=== PATIENT | female | born 1965 | race Hispanic/Latino ===

== ENCOUNTER 2024-06-07 23:43 | Inpatient (IN) | payer BC, OTHER ==
[~2024-06-07] VITALS: Ht 152.4 cm; Wt 67.0 kg
[~2024-06-07 23:43] MED LIST: ALBU0.63 IH; AMLO2.5T4 PO; DOXY100T2 PO; FLUT1BLS15 IH; LOSA50TA64 PO; POTA-192 PO; PRED20TA3 PO
[2024-06-08] VITALS (10 sets, daily range): BP systolic 131–164; BP diastolic 54–64; PULSE 48–60; RESP 14–20; TEMP 97.9–98.1; O2SAT 96–98
--- NOTE | 2024-06-08 00:38 | ERN ---
General Chief Complaint: Altered Mental Status Stated Complaint: AMS Time Seen by MD: 00:02 Source: family History of Present Illness Initial Comments Patient is a 58-year-old female with past medical history of cystic fibrosis cirrhosis heart disease and prior hospitalizations for hyperammonemia. Patient earlier today became disoriented delusional and forgetful needing constantly to be reminded of tasks and constantly repeating tasks even though had been completed. Daughter is at the bedside and tells me this is how she behaved the last time she had very high ammonia in her blood stream. When I talked to the patient directly and I asked her questions she simply says to me okay okay okay Allergies: Coded Allergies: codeine (Unverified Allergy, Unknown, 04/30/22) Home Meds Active Scripts Doxycycline Hyclate (Doxycycline Hyclate) 100 Mg Tablet, 100 MG PO BID, #20 TAB 0 Refills Prov:MERCEDES DUTTON [employer] CUTTER OPERATOR 05/02/22 Prednisone (Prednisone) 20 Mg Tablet, 20 MG PO AD for 6 Days, #9 TAB 0 Refills Day 1-3 take 40 mg orally daily in am. Day 4-6 take 20 mg orally daily in am. Prov:MERCEDES DUTTON [facility] 05/02/22 Reported Medications Potassium Chloride (K-Dur/Klor-Con) 20 Meq Ertab, 20 MEQ PO DAILY, TAB.EC 05/01/22 Albuterol Sulfate (Albuterol Sulfate) 0.63 Mg/3 Ml Vial.neb, 0.63 MG IH TID, INH 05/01/22 Fluticasone/Umeclidin/Vilanter (Trelegy Ellipta 200-62.5-25) 1 Each Blst.w.dev, 1 EACH IH DAILY 05/01/22 Losartan Potassium (Losartan Potassium) 50 Mg Tablet, 50 MG PO TOMÁS, TAB 04/30/22 Amlodipine Besylate (Amlodipine Besylate) 2.5 Mg Tablet, 2.5 MG PO DAILY, TAB 04/30/22 Past Medical History Past Medical History: Hypertension, Liver Disease, Other Medical History Other: CYSTIC FIBROSIS, CIRRHOSIS Past Surgical History: Tonsillectomy, Cholecystectomy, BTL Social History Social History: Negative, Lives with family Female( History) History: Not Applicable ROS Dictation Impossible to obtain a review of systems as patient is simply keeps saying okay okay okay. Physical Exam General Appearance comment Patient lying in bed minimally responsive. Head/Face Trauma: No Eye: bilateral eye normal inspection, bilateral eye PERRL, bilateral eye EOMI Ear, Nose, Throat: (+) hearing grossly normal, (+) normal ENT inspection Ear, Nose, Throat Comment Patient's mucous membranes are dry Neck: (+) normal inspection, (+) supple, (+) full range of motion Respiratory: (+) chest non-tender, (+) lungs clear Heart: (+) regular Vascular Comment Patient has mild peripheral edema all four extremities Gastrointestinal: (+) soft, (+) bowel sound present Gastrointestinal Comment Can not tell if abdomen is tender or not as patient responds randomly during my exam. I do not appreciate a fluid wave the abdomen is not distended. Skin: (+) normal color, (+) warm/dry, (+) cyanosis, (+) diaphoresis, (+) jaundice, (+) mottled, (+) pallor, (+) rash Skin Comment Skin feels warm. Results Laboratory and Microbiology Lab and Micro Result Laboratory Tests Test 06/08/24 00:31 06/08/24 01:03 White Blood Count 2.8 K/uL (4.8-10.8) L Red Blood Count 3.35 MIL/uL (4.00-5.50) L Hemoglobin 10.5 g/dL (12.0-16.0) L Hematocrit 31.4 % (36-48) L Mean Corpuscular Volume 93.7 fL (79-99) Mean Corpuscular Hemoglobin 31.3 pg (27.0-33.0) Mean Corpuscular Hemoglobin Concent 33.4 g/dL (32.0-36.0) Red Cell Distribution Width 15.9 % (11.0-15.5) H Platelet Count 61 K/uL (130-400) L Mean Platelet Volume 11.5 fL (7.5-10.5) H Immature Granulocyte % (Auto) 0.0 % (0-1) Neutrophils (%) (Auto) 46.6 % (40.0-77.0) Lymphocytes (%) (Auto) 34.4 % (21.0-51.0) Monocytes (%) (Auto) 10.0 % (3.0-13.0) Eosinophils (%) (Auto) 7.9 % (0.0-8.0) Basophils (%) (Auto) 1.1 % (0.0-5.0) Neutrophils # (Auto) 1.3 K/uL (1.8-7.7) L Lymphocytes # (Auto) 1.0 K/uL (1.0-4.8) Monocytes # (Auto) 0.3 K/uL (0.1-1.0) Eosinophils # (Auto) 0.22 K/uL (0.00-0.70) Basophils # (Auto) 0.03 K/uL (0.00-0.20) Absolute Immature Granulocyte (auto 0.00 K/uL (0-1) Segmented Neutrophils % 51 % (40-70) Band Neutrophils % 1 % (0-2) Lymphocytes % (Manual) 29 % (22-44) Monocytes % (Manual) 11 % (2-9) H Eosinophils % (Manual) 6 % (1-6) Basophils % (Manual) 2 % (0-2) Nucleated Red Blood Cells 0.0 % (0.0-0.19) Differential Comment MANUAL DIFFERENTIAL White Cell Morphology Comment CONSISTENT W/DIFF Platelet Morphology Comment DECREASED Red Blood Cell Morphology See comments Prothrombin Time 13.0 SEC (9.6-11.6) H Prothromb Time International Ratio 1.25 (0.85-1.15) H Activated Partial Thromboplast Time 30.2 SEC (26.3-35.5) Sodium Level 142 mmol/L (136-145) Potassium Level 3.5 mmol/L (3.5-5.1) Chloride Level 110 mmol/L (101-111) Carbon Dioxide Level 25 mmol/L (21-32) Blood Urea Nitrogen 18 mg/dL (7-18) Creatinine 1.0 mg/dL (0.5-1.0) Glomerular Filtration Rate Calc 65 mL/min (>90) Random Glucose 107 mg/dL (70-105) H Total Calcium 8.4 mg/dL (8.5-10.1) L Total Bilirubin 1.3 mg/dL (0.2-1.0) H Direct Bilirubin 0.3 mg/dL (0.0-0.3) Aspartate Amino Transf (AST/SGOT) 74 U/L (10-37) H Alanine Aminotransferase (ALT/SGPT) 36 U/L (12-78) Alkaline Phosphatase 169 U/L (50-136) H Ammonia 85 umol/L (11-32) H Total Protein 7.9 g/dL (6.0-8.3) Albumin 2.4 g/dL (3.5-5.0) L Urine Color YELLOW (YELLOW) Urine Appearance CLEAR (CLEAR) Urine pH 6.5 (5.0-8.0) Urine Specific [place] 1.012 (1.001-1.031) Urine Protein NEGATIVE mg/dL (NEGATIVE) Urine Glucose (UA) NEGATIVE mg/dL (NEGATIVE) Urine Ketones NEGATIVE mg/dL (NEGATIVE) Urine Occult Blood MODERATE (NEGATIVE) H Urine Nitrate NEGATIVE (NEGATIVE) Urine Bilirubin NEGATIVE mg/dL (NEGATIVE) Urine Urobilinogen 0.2 mg/dL (0.2-1.0) Urine Leukocyte Esterase 75 John/uL (NEGATIVE) H Urine RBC 51-100 /HPF (0-1) H Urine WBC 6-10 /HPF (0-1) H Urine Squamous Epithelial Cells RARE /HPF (0-2) Urine Bacteria FEW /HPF (None Seen) MDM Best assumption is that the patient has decreased mental status is due to hyperammonemia per daughter's history. However other things maybe going on she may have: Infected ascitic fluid, pneumonia, bloodstream infection, severe other metabolic derangements, meningitis. I will order labs CBC BMP CMP start empiric therapy for infected inside ascites also start rifampin and lactulose. Ammonia has come back at 80. CBC shows a white count of 2.5. Urine shows leukocyte esterase activity. I have given the patient a g of ceftriaxone and lactulose. I have called the hospitalists and they will admit her to their service. ED Course Orders Procedure Category Date Status Time Cbc With Differential LAB 06/08/24 Complete 00:17 Basic Metabolic Panel LAB 06/08/24 Complete 00:17 Ammonia LAB 06/08/24 Complete 00:17 Urinalysis Profile LAB 06/08/24 Complete 00:17 Hepatic Function Panel LAB 06/08/24 Complete 00:18 Prothrombin Time With LAB 06/08/24 Complete INR 00:38 Partial LAB 06/08/24 Complete Thromboplastin Time 00:38 Chest 1vw RAD 06/08/24 Taken 00:38 12 Lead Ekg Tracing- EKG 06/08/24 Complete Technical 00:38 Lactulose 20 Gm/30 Ml PHA 06/08/24 Complete Udcup (Constulose 01:00 Us Abdominal US 06/08/24 Logged Paracentesis Ir 00:38 Manual Differential LAB 06/08/24 Complete 00:31 Ceftriaxone 1g Vial PHA 06/08/24 Complete (Rocephine 1g Inj) 01:00 Culture Urine CESAR 06/08/24 In Process 01:23 Current Medications Medications (Trade) Dose Ordered Sig/Johnny Route PRN Reason Start Time Stop Time Status Last Admin Dose Admin Ceftriaxone Sodium (ROCEphine 1G INJ) 1 gm ONCE ONCE IVPB 06/08/24 01:00 06/08/24 01:01 DC 06/08/24 01:21 Lactulose (Constulose 20gm/ 30ml Udcup) 200 gm ONCE ONCE ID 06/08/24 01:00 06/08/24 01:01 DC 06/08/24 01:21 Vital Signs Date Time Temp Pulse Resp B/P (MAP) Pulse Ox O2 Delivery O2 Flow Rate FiO2 06/08/24 00:08 97.3 61 15 184/72 99 Nasal Cannula 2.0 06/07/24 23:54 98.2 61 14 177/68 95 Room Air* 0 21 DX & DISP Disposition: Inpatient Departure Impression: Primary Impression: Hyperammonemic encephalopathy Additional Impression: UTI (urinary tract infection) Condition: Stable Referrals: SELF,REFERRAL (PCP) GUME FELIZ MD Jun 08, 2024 00:38
[2024-06-08 00:43] LABS: BASOPHILS # (AUTO) 0.03 K/uL (0.00-0.20); BASOPHILS % (AUTO) 1.1 % (0.0-5.0); EOSINOPHILS # (AUTO) 0.22 K/uL (0.00-0.70); EOSINOPHILS % (AUTO) 7.9 % (0.0-8.0); HEMATOCRIT 31.4 % (36-48); LYMPHOCYTES % (AUTO) 34.4 % (21.0-51.0); MEAN CORPUSCULAR HEMOGLOBIN 31.3 pg (27.0-33.0); MEAN CORPUSCULAR HGB CONC 33.4 g/dL (32.0-36.0); MEAN CORPUSCULAR VOLUME 93.7 fL (79-99); MONOCYTES # (AUTO) 0.3 K/uL (0.1-1.0); NEUTROPHILS # (AUTO) 1.3 K/uL (1.8-7.7); NEUTROPHILS % (AUTO) 46.6 % (40.0-77.0); PLATELET COUNT (AUTO) 61 K/uL (130-400); RED BLOOD CELL COUNT(AUTO) 3.35 MIL/uL (4.00-5.50); RED CELL DISTRIBUTION WIDTH 15.9 % (11.0-15.5); WHITE BLOOD COUNT (AUTO) 2.8 K/uL (4.8-10.8)
--- NOTE | 2024-06-08 00:51 | EKG ---
[facility] Test Date: 2024-06-08 Test Time: 00:49:35 Pat Name: JOSE JUAN LEONARDO Department: EDH Room: ED Gender: F Data Processing Consultant: [id number] : 1965 Requested By: GUME FELIZ Order Number: [id number] Reading MD: Zaheer Zamora Measurements Intervals [place] Rate: 63 P: 56 [place]: 171 QRS: 0 QRSD: 119 T: 51 QT: 487 QTc: 500 Interpretive Statements Sinus rhythm Nonspecific intraventricular conduction delay No previous ECG available for comparison Electronically Signed On 06-08-2024 13:10:13 CDT by Zaheer Zamora Please click the below link to view image of tracing.
[2024-06-08 00:52] LABS: POTASSIUM 3.5 mmol/L (3.5-5.1)
[2024-06-08 00:56] LABS: INR 1.25 (0.85-1.15)
[2024-06-08 00:57] LABS: PARTIAL THROMBOPLASTIN TIME 30.2 SEC (26.3-35.5)
[2024-06-08 01:08] LABS: BAND NEUTROPHILS % (MANUAL) 1 % (0-2); BASOPHILS % (MANUAL) 2 % (0-2); EOSINOPHILS % (MANUAL) 6 % (1-6); LYMPHOCYTES % (MANUAL) 29 % (22-44); MAN.DIFF COMMENT-IMPRESSION MANUAL DIFFERENTIAL; MONOCYTES % (MANUAL) 11 % (2-9); SEGMENTED NEUTROPHILS % 51 % (40-70); TOTAL CELLS COUNTED 100
[2024-06-08 01:09] LABS: WBC MORPHOLOGY CONSISTENT W/DIFF
[2024-06-08 01:10] LABS: PLATELET MORPHOLOGY COMMENT DECREASED
[2024-06-08 01:20] LABS: APPEARANCE,URINE CLEAR (CLEAR); BILIRUBIN,URINE NEGATIVE (NEGATIVE); COLOR,URINE YELLOW (YELLOW); GLUCOSE, URINE (UA) NEGATIVE (NEGATIVE); KETONES,URINE NEGATIVE (NEGATIVE); LEUKOCYTE ESTERASE ,URINE 75 Leu/uL (NEGATIVE); NITRATE,URINE NEGATIVE (NEGATIVE); OCCULT BLOOD,URINE MODERATE (NEGATIVE); PH,URINE 6.5 (5.0-8.0); PROTEIN,URINE NEGATIVE (NEGATIVE); UROBILINOGEN,URINE 0.2 mg/dL (0.2-1.0)
[2024-06-08] MEDS: cefTRIAXone 1G VIAL IVPB ONE (01:21)
[2024-06-08] MEDS: LACTULOSE 20 GM/30 ML UDCUP PR ONE (01:21)
[2024-06-08 01:23] LABS: ADD UA MICROSCOPIC YES
[2024-06-08 01:28] LABS: ALBUMIN 2.4 g/dL (3.5-5.0); BILIRUBIN,DIRECT 0.3 mg/dL (0.0-0.3); BILIRUBIN,TOTAL 1.3 mg/dL (0.2-1.0); TOTAL PROTEIN, SERUM 7.9 g/dL (6.0-8.3)
[2024-06-08 01:33] LABS: BACTERIA,URINE FEW /HPF (None Seen); MUCUS,URINE RARE LPF (None Seen); RBC,URINE 51-100 /HPF (0-1); SQUAMOUS EPITHELIAL CELL,UR RARE /HPF (0-2)
[2024-06-08] MEDS ORDERED: acetaMINOPHEN 650 MG SUPPOSITORY RC PRN (02:00)
[2024-06-08] MEDS ORDERED: hydrALAZine 20MG/ML VIAL IV PRN (02:00)
[2024-06-08] MEDS ORDERED: TEMAZepam 15 MG CAPSULE PO PRN (02:00)
[2024-06-08 02:17] LABS: ABG BASE EXCESS -3.7 mmol/L (-2.0-3.0); ABG HCO3 18.5 mmol/L (21.0-28.0); ABG PCO2 27 mmHg (32-45); ABG PH 7.457 (7.350-7.450); DEVICE COMMENT LR RN; PO2, ARTERIAL BG 84.5 mmHg (83.0-108.0); VENT MODE, BG 2LNC (ROOM AIR)
[2024-06-08] MEDS ORDERED: LOSA25TA41 PO (03:51)
[2024-06-08] MEDS ORDERED: ELEX1TAB PO (03:51)
[2024-06-08] MEDS ORDERED: POTA-202 PO (03:51)
[2024-06-08] MEDS ORDERED: OMEP-420 PO (03:51)
[2024-06-08] MEDS ORDERED: FURO40TA5 PO (03:51)
[2024-06-08] MEDS ORDERED: MULT-1192 PO (03:51)
[2024-06-08] MEDS ORDERED: CARV6.25 PO (03:51)
[2024-06-08] MEDS ORDERED: ALBU18HF7 IH (03:51)
[2024-06-08] MEDS ORDERED: SPIR25TA6 PO (03:51)
[2024-06-08] MEDS ORDERED: FLUT16H NS (03:51)
--- NOTE | 2024-06-08 05:09 | HP ---
[facility] Date of Service: Jun 08, 2024 Time of Service: 05:09 Attending/supervising physicians: Dr. Paul and Dr. Crowell HISTORY OF PRESENT ILLNESS: Ms. Walekr is a 58-year-old female with past medical history of cystic fibros is cirrhosis heart disease and prior hospitalizations for hyperammonemia. ED provider reports that patient was brought due to becoming disoriented, delusional, and forgetful needing constantly to be reminded of tasks and constantly repeating tasks even though had been completed onset 1300 on 06/07/2024. Daughter is at the bedside and reported that this behavior similar to the last time that the patient had very high ammonia in her blood stream. ED provider reports that during his evaluation the patient responded okay, okay, okay after he ask the patient questions. The patient was found to have have an ammonia level of 85. In ED the patient was started on lactulose 20 g AL. RN reports that patient did not tolerate therefore did not get the whole lactulose. The patient was also started on Rocephin1 g for suspected UTI. ED provider request patient be admitted with the diagnosis of hyperammonemia encephalopathy and UTI. I went to assess the patient at bedside in ED 13. Breathing was even, unlabored, appeared comfortable, in no distress. The patient was oriented to person and place. The patient was not oriented to situation or time. Daughter at bedside reported that the patient has received lactulose in the past in the hospital but has not received lactulose as a prescription for home use. The daughter also reported that the patient has a pending appointment on 07/07/2024 at [facility], and an appointment on 06/16/2024 at 2:00 p.m. via telephone. She reports that the patient will be evaluated for a liver transplant and lung transplant. The daughter reports that the patient has "20% of her left lung working", has a history of bronchiectasis, cirrhosis of the liver, dermatomyosis, and cystic fibrosis. The daughter requests that [place] [facility] [place] [facility] in [place]. She reports that the physician that we will be seeing her over there is Dr. Monica Disla and the phone number is [phone]. I informed the patient and daughter of labs, diagnostics, and plan of care. They verbalized understanding and are in agreement with the plan. Plan and assessment are listed below. REVIEW OF SYSTEMS Unable to obtain ROS from patient due to patient's medical condition/AMS. PAST MEDICAL HISTORY: As mentioned above PAST SURGICAL HISTORY: Tonsillectomy, cholecystectomy, BTL PAST SOCIAL HISTORY: Denied alcohol, tobacco, illicit drug use. Lives with family FAMILY HISTORY: Noncontributory Coded Allergies: codeine (Unverified Allergy, Unknown, 04/30/22) PHYSICAL EXAM GENERAL APPEARANCE: The patient is awake, alert, and oriented, in no acute cardiopulmonary distress. NEUROLOGICAL: Oriented to person and place. Not oriented to situation nor date. HEENT: Face is symmetric. Pupils are equal and reactive. Extraocular movements are intact. NECK: Supple. No JVD. No thyromegaly. No submental, submandibular, pre-/postauricular, occipital or supraclavicular lymphadenopathy. CHEST: Normal chest expansion. No Telemetry. LUNGS: Absence of any rales, rhonchi or any wheezing. CARDIOVASCULAR: Regular. S1 and S2 normal. No appreciable rubs, murmurs or gallops. ABDOMEN: Obese. Soft, nontender, and nondistended. There is no rebound, voluntary guarding, or rigidity. : Deferred. No Wolf. EXTREMITIES: Non-edematous and not cyanotic. No clubbing. Good capillary refill. SKIN: No skin breakdown. Vital Sign (Last 24 Hours) 06/08/24 04:43 Temp 98.2 Pulse 61 Resp 14 B/P (MAP) 148/52 Pulse Ox 95 O2 Delivery Room Air* O2 Flow Rate 0 FiO2 21 Intake & Output (last 24hrs) 06/07/24 06/07/24 06/08/24 15:00 23:00 07:00 Intake Total 50.0 ml Balance 50.0 ml LABS: Laboratory: Test 06/08/24 02:15 06/08/24 01:03 06/08/24 00:31 Range/Units Blood Gas Specimen Type Arterial Arterial Blood pH 7.457 H 7.350-7.450 Arterial Blood Partial Pressure CO2 27 L 32-45 mmHg Arterial Blood Partial Pressure O2 84.5 83.0-108.0 mmHg Arterial Blood HCO3 18.5 L 21.0-28.0 mmol/L Arterial Blood Oxygen Saturation 97.0 94.0-98.0 % Arterial Blood Base Excess -3.7 L -2.0-3.0 mmol/L Blood Gas Temperature 37.0 35.5-37.0 CELSIUS Blood Gas Flow-by 2.00 0.00-15.00 L/min Blood Gas Vent Mode 2LNC ROOM AIR FiO2 28.0 % Blood Gas Specimen Comment LR RN Urine Color YELLOW YELLOW Urine Appearance CLEAR CLEAR Urine pH 6.5 5.0-8.0 Urine Specific [place] 1.012 1.001-1.031 Urine Protein NEGATIVE NEGATIVE mg/dL Urine Glucose (UA) NEGATIVE NEGATIVE mg/dL Urine Ketones NEGATIVE NEGATIVE mg/dL Urine Occult Blood MODERATE H NEGATIVE Urine Nitrate NEGATIVE NEGATIVE Urine Bilirubin NEGATIVE NEGATIVE mg/dL Urine Urobilinogen 0.2 0.2-1.0 mg/dL Urine Leukocyte Esterase 75 H NEGATIVE John/uL Urine RBC 51-100 H 0-1 /HPF Urine WBC 6-10 H 0-1 /HPF Urine Squamous Epithelial Cells RARE 0-2 /HPF Urine Bacteria FEW None Seen /HPF White Blood Count 2.8 L 4.8-10.8 K/uL Red Blood Count 3.35 L 4.00-5.50 MIL/uL Hemoglobin 10.5 L 12.0-16.0 g/dL Hematocrit 31.4 L 36-48 % Mean Corpuscular Volume 93.7 79-99 fL Mean Corpuscular Hemoglobin 31.3 27.0-33.0 pg Mean Corpuscular Hemoglobin Concent 33.4 32.0-36.0 g/dL Red Cell Distribution Width 15.9 H 11.0-15.5 % Platelet Count 61 L 130-400 K/uL Mean Platelet Volume 11.5 H 7.5-10.5 fL Immature Granulocyte % (Auto) 0.0 0-1 % Neutrophils (%) (Auto) 46.6 40.0-77.0 % Lymphocytes (%) (Auto) 34.4 21.0-51.0 % Monocytes (%) (Auto) 10.0 3.0-13.0 % Eosinophils (%) (Auto) 7.9 0.0-8.0 % Basophils (%) (Auto) 1.1 0.0-5.0 % Neutrophils # (Auto) 1.3 L 1.8-7.7 K/uL Lymphocytes # (Auto) 1.0 1.0-4.8 K/uL Monocytes # (Auto) 0.3 0.1-1.0 K/uL Eosinophils # (Auto) 0.22 0.00-0.70 K/uL Basophils # (Auto) 0.03 0.00-0.20 K/uL Absolute Immature Granulocyte (auto 0.00 0-1 K/uL Segmented Neutrophils % 51 40-70 % Band Neutrophils % 1 0-2 % Lymphocytes % (Manual) 29 22-44 % Monocytes % (Manual) 11 H 2-9 % Eosinophils % (Manual) 6 1-6 % Basophils % (Manual) 2 0-2 % Nucleated Red Blood Cells 0.0 0.0-0.19 % Differential Comment MANUAL DIFFERENTIAL White Cell Morphology Comment CONSISTENT W/DIFF Platelet Morphology Comment DECREASED Red Blood Cell Morphology See comments Prothrombin Time 13.0 H 9.6-11.6 SEC Prothromb Time International Ratio 1.25 H 0.85-1.15 Activated Partial Thromboplast Time 30.2 26.3-35.5 SEC Sodium Level 142 136-145 mmol/L Potassium Level 3.5 3.5-5.1 mmol/L Chloride Level 110 101-111 mmol/L Carbon Dioxide Level 25 21-32 mmol/L Blood Urea Nitrogen 18 7-18 mg/dL Creatinine 1.0 0.5-1.0 mg/dL Glomerular Filtration Rate Calc 65 >90 mL/min Random Glucose 107 H 70-105 mg/dL Total Calcium 8.4 L 8.5-10.1 mg/dL Total Bilirubin 1.3 H 0.2-1.0 mg/dL Direct Bilirubin 0.3 0.0-0.3 mg/dL Aspartate Amino Transf (AST/SGOT) 74 H 10-37 U/L Alanine Aminotransferase (ALT/SGPT) 36 12-78 U/L Alkaline Phosphatase 169 H 50-136 U/L Ammonia 85 H 11-32 umol/L Total Protein 7.9 6.0-8.3 g/dL Albumin 2.4 L 3.5-5.0 g/dL Current Medications Medications (Trade) Dose Ordered Sig/Johnny Route PRN Reason Start Time Stop Time Status Last Admin Dose Admin Acetaminophen (TYLenol 325MG TAB) 650 mg Q6H PRN PO FEVER/MILD PAIN LEVEL 1-3 06/08/24 02:00 07/08/24 01:59 Acetaminophen (TYLenol 650MG SUPPOSITORY) 650 mg Q6H PRN RC FEVER / MILD PAIN 1-3 IF NPO 06/08/24 02:00 07/08/24 01:59 Docusate Sodium (COLace 100MG CAP) 100 mg BID PRN PO c 06/08/24 02:00 07/08/24 01:59 Hydralazine HCl (APRESOLine 20MG INJ) 10 mg Q6H PRN IV SBP GREATER THAN 180 06/08/24 02:00 07/08/24 01:59 Insulin Human Regular (humuLIN R 100 UNIT/ML 3ML) INSULIN SLIDING SCAL... Q6H6 SQ 06/08/24 06:00 07/08/24 05:59 Lactulose (Constulose 20gm/ 30ml Udcup) 20 gm Q6H PO 06/08/24 07:00 07/08/24 06:59 Ondansetron HCl (zoFRAN 4MG INJ) 4 mg Q6H PRN IVP NAUSEA/VOMITING 06/08/24 02:00 07/08/24 01:59 Temazepam (restORIL 15 MG CAP) 15 mg HS PRN PO INSOMNIA/SLEEP 06/08/24 02:00 07/08/24 01:59 DIAGNOSTICS / RADIOLOGY: [ ] ASSESSMENT: Hyperammonemic encephalopathy, POA Acute complicated cystitis, POA Multifocal pneumonia, POA Chronic interstitial changes with volume loss, bronchiolectasis, per CT 06/08/2024 Retractions in the bilateral upper lobes, per CT 06/08/2024 Cirrhotic morphology of the liver, per CT 06/08/2024 Splenomegaly Portal hypertension, per CT 06/08/2024 Leukopenia, POA Thrombocytopenia, POA Anemia chronic disease, POA Uncontrolled hypertension, POA Hyperglycemia, POA Transaminitis, POA Hypoalbuminemia, POA Elevated PT INR, POA Chronic problem list: "20% of her left lung working", history of bronchiectasis, cirrhosis of the liver, dermatomyositis, cystic fibrosis, heart disease. History of splenomegaly secondary to liver cirrhosis PLAN: Admit to medical floor with telemetry monitoring. Consult GI for evaluation of liver cirrhosis and for evaluation of need for transferred to higher level as per daughter request. Consult pulmonology for bronchiolectasis, retractions in the bilateral upper lobe. multifocal pneumonia. Lactulose 20 g p.o. q.6 hours. Monitor ammonia level. Monitor neurological status. Antibiotic therapy: Rocephin and doxycycline. Monitor respiratory status closely. Oxygen therapy as needed. Titrate oxygen to keep SpO2 equal to greater than 92%. Pulmicort, Albuterol and Atrovent scheduled. RT to provide IS and education on use. Robitussin DM as needed for cough. P.r.n. medications for: Pain management, fever, hypertension, nausea, vomiting, constipation. Glucometer checks a.c. and HS with insulin regular sliding scale coverage as needed per protocol. Blood pressure checks every4 hours and as needed. Reconcile home medications once available. Monitor renal and liver function. Monitor electrolytes and treat accordingly. A.m. labs: CBC, CMP, Mag, phos, TSH, A1c. GI and DVT prophylaxis. GILDA MARINA JUMBO OPERATOR Jun 08, 2024 05:09
[2024-06-08] MEDS: INSULIN humuLIN R 100 UNIT/ML 3ML SQ SCH (06:00)
--- NOTE | 2024-06-08 08:34 | HMCIMG ---
INDICATION: liver failure TECHNIQUE: CHEST 1VW COMPARISON: 05/02/2022 FINDINGS AND IMPRESSION: Bilateral airspace consolidation suggesting vascular congestion/edema versus pneumonia. Chronic interstitial changes again seen in both lungs, more pronounced in the left upper lobe. Mild cardiomegaly Mild degenerative changes of the spine. The visualized upper abdomen appears unremarkable.
--- NOTE | 2024-06-08 08:35 | HMCIMG ---
US ABD LIMITED/ABD WALL HISTORY: Cirrhosis TECHNIQUE: US ABD LIMITED/ABD WALL. FINDINGS / IMPRESSION: Ultrasound evaluation of the abdomen was performed. There is cirrhosis of the liver. No free fluid was identified.
[2024-06-08] MEDS: [UNRECOGNIZED DRUG - OTHER] PO SCH (09:00)
[2024-06-08] MEDS ORDERED: PoTASSium chloRIDE 20MEQ/100ML 100 ML IV PRN (09:00)
[2024-06-08] MEDS: (Fluticasone/Umeclidin/Vilanter (Trelegy Ellipta 200-62.5- IH SCH (09:00)
[2024-06-08] MEDS: fluTICasone proPIONate 50MCG/SPRAY 16 GM BOTTLE NS SCH (09:00)
[2024-06-08] MEDS ORDERED: PoTASSium chl 10% ELIXIR 20MEQ 20 MEQ/15 ML UDCUP PO PRN (09:00)
[2024-06-08] MEDS ORDERED: (Albuterol Sulfate (Ventolin Hfa) 2 PUFF) IH PRN (09:00)
--- NOTE | 2024-06-08 09:14 | HMCIMG ---
CT CHEST/ABD/PELV W/O CONTRAST HISTORY: cough, cirrhosis of the liver, elevated ammonia level TECHNIQUE: CT CHEST/ABD/PELV W/O CONTRAST. Coronal and sagittal reformats were obtained. CT was performed with one or more of the following dose reduction techniques: Automated exposure control, adjustment of the mA and/or kV according to the patient's size, or use of the iterative reconstruction technique. FINDINGS: The noncontrast nature this study limits evaluation of the mediastinal structures. Bilateral patchy groundglass and airspace consolidation suggesting multifocal pneumonia. Chronic interstitial changes with volume loss, bronchiectasis and retraction seen in the bilateral upper lobes. There is cardiomegaly. Cirrhotic morphology of the liver is seen. There is spleen is enlarged measuring 20.2 cm suggesting portal hypertension. There is no pericardial effusion. There is atherosclerotic disease of the aorta with calcified plaques. Pancreas and kidneys are within normal limits. No bowel obstruction is seen. Distended urinary bladder. There is mild constipation. The appendix was not clearly visualized limiting evaluation. Correlate clinically. No free abdominal air is seen. Degenerative changes of the spine are noted. IMPRESSION: 1. Bilateral patchy groundglass and airspace consolidation suggesting multifocal pneumonia. Chronic interstitial changes with volume loss, bronchiectasis and retraction seen in the bilateral upper lobes. There is cardiomegaly. 2. Cirrhotic morphology of the liver is seen. The spleen is enlarged measuring 20.2 cm suggesting portal hypertension.
[2024-06-08] MEDS: carVEDIlol 6.25 MG TABLET PO SCH (10:44)
[2024-06-08] MEDS: MULTIVITAMIN TABLET PO SCH (10:44)
[2024-06-08] MEDS: LoSARTan 25 MG TABLET PO SCH (10:44)
[2024-06-08] MEDS: furoSEMIDE 40 MG TABLET PO SCH (10:44)
[2024-06-08] MEDS: SPIRONOLACTONE 25 MG TAB PO SCH (10:44)
[2024-06-08] MEDS: LACTULOSE 20 GM/30 ML UDCUP PO SCH (10:44)
[2024-06-08] MEDS: DOXYCYCLINE 100MG+NS 250ML 250 ML IV SCH (10:45)
[2024-06-08 10:52] LABS: MAGNESIUM 1.9 mg/dL (1.80-2.40); THYROID STIMULATING HORMONE 34.38 uIU/mL (0.36-3.74)
[2024-06-08 10:54] LABS: HEMOGLOBIN A1C 5.1 % (4.0-6.0)
[2024-06-08] MEDS: IpraTROPium 0.5 MG/2.5 ML INH IH SCH (11:15)
[2024-06-08] MEDS: ALBUTEROL 0.083% 2.5 MG/3 ML INH IH SCH (11:15)
[2024-06-08] MEDS: BUDESONIDE 0.5 MG/2 ML INH IH SCH (11:15)
[2024-06-08] MEDS: CEFTRIAXONE 2GM VIAL IVPB SCH (13:03)
[2024-06-08] MEDS: ondanSETRON 4MG INJ IVP PRN (13:58)
--- NOTE | 2024-06-08 18:20 | NUR ---
TRANSFER pt transfer from ER to room 222 pt spouse present at bedside room orientation completed
[2024-06-08] MEDS: PoTASSium chloRIDE 20MEQ ER 20 MEQ ERTAB PO PRN (19:00)
[2024-06-08] MEDS: MAGNESIUM 2GM PREMIX 50ML 50 ML IV PRN (19:01)
--- NOTE | 2024-06-08 19:11 | CONS ---
[facility] CONSULTATION NOTE Date Patient Seen: Jun 08, 2024 Time of Visit: 19:08 Supervising Physician: Dr. Treviño Reason for Consultation: Bronchiolectasis Primary Care Physician: Self referred Outpatient Specialists: [ ] Inpatient Consults: [ ] PROBLEM LIST: Hyperammonemic encephalopathy, POA Multifocal pneumonia, POA Chronic interstitial changes with volume loss, bronchiolectasis, per CT 06/08/2024 Liver cirrhosis without ascites, per CT 06/08/2024 Splenomegaly Portal hypertension, per CT 06/08/2024 Leukopenia, POA Thrombocytopenia, POA Anemia chronic disease, POA Uncontrolled hypertension, POA Hyperglycemia, POA Transaminitis, POA Hypoalbuminemia, POA Elevated PT INR, POA HPI: This is a 58-year-old female patient who has past medical history that is significant for hypertension, bronchiectasis, chronic lung disease, recurrent pneumonia. Per the spouse who is present at the bedside, he made mentioned that yesterday during a family gathering, the patient was noted to be confused with unusual behaviors after going in to the house and returning with five bottles of water, when questioned about the use of the five bottles stated that she was going to drink them all and then becoming irate. She again attempted to returned inside the house but instead went around the house and later ended up in her daughter's house and was attempting to unscrew the lid off a glass bottle when there was no lid on the bottle. Because of these unusual behaviors, the family members decided to call EMS and the patient was brought into the emergency department for further evaluation and management of her condition. At the time of my evaluation, the patient was in her assigned room. Vital signs were generally stable. Laboratory data of significance showed a WBC of 2.8, H&H 10.5/31.4 and a platelet count of 61. Chemistry panel was generally unremarkable except for a total bili of 1.3, AST 74, ALT 36 and a alk-phos of 169. Ammonia level was 85. Urinalysis showed elevated leukocyte esterase, few bacteria and moderate amount occult blood. Urine sample was collected and sent for culture. ABG showed a pH 7.45, pCO2 27, PO2 84.5, HC03 18.5 and a base excess of 3.7. Chest imaging showed bilateral airspace consolidation with concern for a pneumoniae, abdominal ultrasound showed liver cirrhosis without any free fluid. Based on the findings, the patient was admitted for further inpatient evaluation and management of her condition. At the time of my visit, the patient was in her assigned room. PAST MEDICAL HX: see above PAST SURGICAL HX: noncontributory SOCIAL HISTORY: No tobacco, ETOH, or illicit drug use Coded Allergies: codeine (Unverified Allergy, Unknown, 04/30/22) REVIEW OF SYSTEMS: 12 point ROS reviewed with patient. Pertinent positives mentioned above. Otherwise negative. PHYSICAL EXAM: GENERAL: Alert, weak, awake oriented x 3 HEENT: EOMI, Sclera non icteric, moist mucosa NECK: Supple, no JVD, trachea midline LUNGS: Clear breath sounds bilaterally. No wheezes HEART: Regular rate and rhythm. Normal S1 and S2, without murmurs ABD: Abdomen soft, nontender. Bowel sounds present EXT: No clubbing cyanosis or edema NEURO: Alert and oriented to person, follows commands Vital Signs (last 8hr) Date Time Temp Pulse Resp B/P (MAP) Pulse Ox O2 Delivery O2 Flow Rate FiO2 06/08/24 18:45 96 Room Air* 0 21 06/08/24 18:06 98.1 58 18 141/58 98 Room Air 06/08/24 17:24 98.1 54 14 131/54 Room Air 0.0 06/08/24 11:50 98.1 60 18 158/63 97 Room Air 0.0 06/08/24 11:23 54 20 N/A Room Air 21 06/08/24 11:20 54 20 LABS: Hematology Labs: Test 06/08/24 00:31 Range/Units White Blood Count 2.8 L 4.8-10.8 K/uL Red Blood Count 3.35 L 4.00-5.50 MIL/uL Hemoglobin 10.5 L 12.0-16.0 g/dL Hematocrit 31.4 L 36-48 % Mean Corpuscular Volume 93.7 79-99 fL Mean Corpuscular Hemoglobin 31.3 27.0-33.0 pg Mean Corpuscular Hemoglobin Concent 33.4 32.0-36.0 g/dL Red Cell Distribution Width 15.9 H 11.0-15.5 % Platelet Count 61 L 130-400 K/uL Mean Platelet Volume 11.5 H 7.5-10.5 fL Immature Granulocyte % (Auto) 0.0 0-1 % Neutrophils (%) (Auto) 46.6 40.0-77.0 % Lymphocytes (%) (Auto) 34.4 21.0-51.0 % Monocytes (%) (Auto) 10.0 3.0-13.0 % Eosinophils (%) (Auto) 7.9 0.0-8.0 % Basophils (%) (Auto) 1.1 0.0-5.0 % Neutrophils # (Auto) 1.3 L 1.8-7.7 K/uL Lymphocytes # (Auto) 1.0 1.0-4.8 K/uL Monocytes # (Auto) 0.3 0.1-1.0 K/uL Eosinophils # (Auto) 0.22 0.00-0.70 K/uL Basophils # (Auto) 0.03 0.00-0.20 K/uL Absolute Immature Granulocyte (auto 0.00 0-1 K/uL Segmented Neutrophils % 51 40-70 % Band Neutrophils % 1 0-2 % Lymphocytes % (Manual) 29 22-44 % Monocytes % (Manual) 11 H 2-9 % Eosinophils % (Manual) 6 1-6 % Basophils % (Manual) 2 0-2 % Nucleated Red Blood Cells 0.0 0.0-0.19 % Differential Comment MANUAL DIFFERENTIAL White Cell Morphology Comment CONSISTENT W/DIFF Platelet Morphology Comment DECREASED Red Blood Cell Morphology See comments Chemistry Labs: Test 06/08/24 16:35 06/08/24 13:14 06/08/24 09:20 06/08/24 00:31 Range/Units Whole Blood Glucose 90 70-110 MG/DL Ammonia 77 H 11-32 umol/L Magnesium Level 1.90 1.80-2.40 mg/dL Thyroid Stimulating Hormone (TSH) 34.38 H 0.36-3.74 uIU/mL Sodium Level 142 136-145 mmol/L Potassium Level 3.5 3.5-5.1 mmol/L Chloride Level 110 101-111 mmol/L Carbon Dioxide Level 25 21-32 mmol/L Blood Urea Nitrogen 18 7-18 mg/dL Creatinine 1.0 0.5-1.0 mg/dL Glomerular Filtration Rate Calc 65 >90 mL/min Random Glucose 107 H 70-105 mg/dL Hemoglobin A1c 5.1 4.0-6.0 % Estimated Average Glucose (eAG) 100 70-126 mg/dL Total Calcium 8.4 L 8.5-10.1 mg/dL Total Bilirubin 1.3 H 0.2-1.0 mg/dL Direct Bilirubin 0.3 0.0-0.3 mg/dL Aspartate Amino Transf (AST/SGOT) 74 H 10-37 U/L Alanine Aminotransferase (ALT/SGPT) 36 12-78 U/L Alkaline Phosphatase 169 H 50-136 U/L Total Protein 7.9 6.0-8.3 g/dL Albumin 2.4 L 3.5-5.0 g/dL Coagulation Labs: Test 06/08/24 00:31 Range/Units Prothrombin Time 13.0 H 9.6-11.6 SEC Prothromb Time International Ratio 1.25 H 0.85-1.15 Activated Partial Thromboplast Time 30.2 26.3-35.5 SEC DIAGNOSTICS / RADIOLOGY RESULTS: [ ] PLAN The patient was admitted and Pulmonary Services were consulted due to multifocal pneumoniae. Currently, the patient was started on Rocephin and doxycycline combination. We will continue antibiotic therapy for now. We will follow the progress with repeat imaging. Patient has a IS at the bedside and was instructed to use every hour 10 pulls. The patient will continue on bronchodilator therapy with DuoNebs. She is currently not requiring any oxygen supplementation. Because of the hyperammonemia, the patient was started on lactulose and we will follow the ammonia level trend. We will monitor the patient's progress and response to management. We will continue provide general supportive care, GI and DVT prophylaxis. Further orders per attending MD and hospital course. Appreciate the opportunity provided to participate in patient care. NEURO: Minimize central acting medications as possible. Maintain fall precautions, adequate lighting during the day PULMONARY: Supplemental 02 as needed. Maintain aspiration precautions at all times CARDIOVASCULAR: Follow hemodynamics. Vital signs per facility protocol GI & NUTRITION: Continue with nutritional support. Continue stool softeners and laxatives as needed. KIDNEYS & ELECTROLYTES: Strict monitoring of intake, output and overall fluid balance. Avoid nephrotoxic medications to the extent possible. Medications to be dosed according to renal function. Monitor electrolytes and replace as needed ENDOCRINE: Maintain blood glucose between 100-180 at all times. Hypoglycemia protocol in place INFECTIOUS DISEASE: Trend temperature, WBC and procalcitonin level Follow cultures, deescalate antibiotics as soon as possible. Panculture if new onset fever ONCOLOGY/HEMATOLOGY/COAGULATION: Monitor for s/s of bleeding Monitor hemoglobin, coagulation studies as needed SKIN: Pressure ulcer prevention per facility protocol Specialty mattress ORTHO/REHAB: Continue PT/OT Prophylaxis: Continue GI and DVT prophylaxis Code Status: Full Resuscitation Disposition: TBD Other: Total patient care time exceeds 35 minutes excluding all procedures. ROSIBEL DUNAWAY NP Jun 08, 2024 19:11
[2024-06-08] MEDS: acetaMINOPHEN 325 MG TAB PO PRN (19:35)
[2024-06-09] VITALS (16 sets, daily range): BP systolic 136–166; BP diastolic 59–81; PULSE 51–70; RESP 16–20; TEMP 97.6–98.7; O2SAT 93–99
[2024-06-09 04:15] LABS: BASOPHILS # (AUTO) 0.03 K/uL (0.00-0.20); BASOPHILS % (AUTO) 1.3 % (0.0-5.0); EOSINOPHILS # (AUTO) 0.14 K/uL (0.00-0.70); EOSINOPHILS % (AUTO) 6.2 % (0.0-8.0); HEMATOCRIT 29.9 % (36-48); LYMPHOCYTES # (AUTO) 0.8 K/uL (1.0-4.8); LYMPHOCYTES % (AUTO) 33.9 % (21.0-51.0); MEAN CORPUSCULAR HEMOGLOBIN 31.2 pg (27.0-33.0); MEAN CORPUSCULAR HGB CONC 33.1 g/dL (32.0-36.0); MEAN CORPUSCULAR VOLUME 94.3 fL (79-99); MONOCYTES # (AUTO) 0.2 K/uL (0.1-1.0); MONOCYTES % (AUTO) 9.3 % (3.0-13.0); NEUTROPHILS # (AUTO) 1.1 K/uL (1.8-7.7); NEUTROPHILS % (AUTO) 49.3 % (40.0-77.0); PLATELET COUNT (AUTO) 40 K/uL (130-400); RED BLOOD CELL COUNT(AUTO) 3.17 MIL/uL (4.00-5.50); RED CELL DISTRIBUTION WIDTH 15.6 % (11.0-15.5); WHITE BLOOD COUNT (AUTO) 2.3 K/uL (4.8-10.8)
[2024-06-09 04:29] LABS: CREATININE 0.9 mg/dL (0.5-1.0); MAGNESIUM 2.2 mg/dL (1.80-2.40); PHOSPHORUS 3.7 mg/dL (2.5-4.9); POTASSIUM 3.2 mmol/L (3.5-5.1)
[2024-06-09 04:54] LABS: EOSINOPHILS % (MANUAL) 9 % (1-6); LYMPHOCYTES % (MANUAL) 30 % (22-44); MAN.DIFF COMMENT-IMPRESSION MANUAL DIFFERENTIAL; MONOCYTES % (MANUAL) 8 % (2-9); REACTIVE LYMPHOCYTES 6 % (0-0); SEGMENTED NEUTROPHILS % 47 % (40-70); TOTAL CELLS COUNTED 100
[2024-06-09 04:56] LABS: PLATELET MORPHOLOGY COMMENT MARKED DECREASE
--- NOTE | 2024-06-09 12:01 | CONS ---
GASTRO[facility]OLOGY CONSULTATION NOTE Date of Consultation: Jun 09, 2024 Time of Consultation: 11:59 History of Present Illness: This is a 58-year-old female with past medical history of hypertension, bronchiectasis, chronic lung disease, recurrent pneumonia who presented due to altered mental status. We were consulted due to liver cirrhosis and evaluation of need for transfer to higher level of care. Patient was last seen in clinic October 2021. She is alert and oriented x 3. Hemoglobin stable. No overt GI bleeding. Review of Systems: CONSTITUTIONAL: No malaise or change in sensation of wellbeing. ENMT: No rhinorrhea, otorrhea, sinus pain, ear ache. CARDIOVASCULAR: No angina, palpitations, orthopnea or paroxysmal dyspnea. RESPIRATORY: No SOB. GASTROINTESTINAL: No abdominal pain, nausea, vomiting, diarrhea, hematemesis, melena or change in the patient's habitual bowel movements consistency/number. GENITOURINARY: No dysuria, hematuria or change in bladder continence. MUSCULOSKELETAL: No new muscle pain or decrease in muscular strength. No new joint swelling, redness or tenderness. SKIN: No new rash. Past Medical History: [ ] Past Surgical History: [ ] Past Social History: [ ] Family History: [ ] Coded Allergies: codeine (Unverified Allergy, Unknown, 04/30/22) Physical Exam: GEN: Awake, alert, oriented in person, time and place, and in no acute distress. HEENT: No sinus tenderness. Tympanic membranes were not examined. No rhinorrhea. Oral pharyngeal mucosa is pink, moist and within normal limits. Neck is supple with no cervical lymphadenopathy, thyromegaly or JVD. CHEST: Inspection, palpation and percussion of the chest were unremarkable. Lung auscultation revealed normal breath sounds bilaterally. CARDIAC: PMI is within normal limits. Heart sounds are regular. Normal S1, S2. No gallop or murmur. ABD: Soft, non-tender and not distended. No peritoneal signs on palpation. No organomegaly. Normal bowel sounds. EXT: No cyanosis or clubbing. No edema. SKIN: Intact. No rashes. JOINTS: No evidence of synovitis or acute arthritis. NEURO: Alert and oriented to name, place and person. Cranial nerve examination is unremarkable. No focal motor deficits. Normal speech. Gait is normal. Strength is normal. Vital Sign (Last 24 Hours) 4/20/06/09/24 06/09/24 06/09/24 06/09/24 19:50 06:47 08:26 09:27 11:04 Temp 97.5 Pulse 58 Resp 18 B/P (MAP) 143/59 Pulse Ox 95 O2 Delivery N/A Room Air O2 Flow Rate 0 FiO2 21 Intake & Output (last 24hrs) 06/08/24 06/08/24 06/09/24 15:00 23:00 07:00 Intake Total 250 ml Balance 250 ml Laboratory: [ ] Laboratory: Test 06/09/24 11:20 06/09/24 04:06 06/08/24 09:20 06/08/24 02:15 Range/Units Whole Blood Glucose 104 70-110 MG/DL White Blood Count 2.3 L 4.8-10.8 K/uL Red Blood Count 3.17 L 4.00-5.50 MIL/uL Hemoglobin 9.9 L 12.0-16.0 g/dL Hematocrit 29.9 L 36-48 % Mean Corpuscular Volume 94.3 79-99 fL Mean Corpuscular Hemoglobin 31.2 27.0-33.0 pg Mean Corpuscular Hemoglobin Concent 33.1 32.0-36.0 g/dL Red Cell Distribution Width 15.6 H 11.0-15.5 % Platelet Count 40 #L 130-400 K/uL Mean Platelet Volume 10.6 H 7.5-10.5 fL Immature Granulocyte % (Auto) 0.0 0-1 % Neutrophils (%) (Auto) 49.3 40.0-77.0 % Lymphocytes (%) (Auto) 33.9 21.0-51.0 % Monocytes (%) (Auto) 9.3 3.0-13.0 % Eosinophils (%) (Auto) 6.2 0.0-8.0 % Basophils (%) (Auto) 1.3 0.0-5.0 % Neutrophils # (Auto) 1.1 L 1.8-7.7 K/uL Lymphocytes # (Auto) 0.8 L 1.0-4.8 K/uL Monocytes # (Auto) 0.2 0.1-1.0 K/uL Eosinophils # (Auto) 0.14 0.00-0.70 K/uL Basophils # (Auto) 0.03 0.00-0.20 K/uL Absolute Immature Granulocyte (auto 0.00 0-1 K/uL Segmented Neutrophils % 47 40-70 % Lymphocytes % (Manual) 30 22-44 % Monocytes % (Manual) 8 2-9 % Eosinophils % (Manual) 9 H 1-6 % Nucleated Red Blood Cells 0.0 0.0-0.19 % Differential Comment MANUAL DIFFERENTIAL Reactive Lymphocytes 6 H 0-0 % White Cell Morphology Comment See comments Platelet Morphology Comment MARKED DECREASE Red Blood Cell Morphology See comments Sodium Level 146 H 136-145 mmol/L Potassium Level 3.2 L 3.5-5.1 mmol/L Chloride Level 114 H 101-111 mmol/L Carbon Dioxide Level 21 21-32 mmol/L Blood Urea Nitrogen 18 7-18 mg/dL Creatinine 0.9 0.5-1.0 mg/dL Glomerular Filtration Rate Calc 74 >90 mL/min Random Glucose 93 70-105 mg/dL Total Calcium 8.2 L 8.5-10.1 mg/dL Phosphorus Level 3.7 2.5-4.9 mg/dL Magnesium Level 2.20 1.80-2.40 mg/dL Ammonia 32 11-32 umol/L Thyroid Stimulating Hormone (TSH) 34.38 H 0.36-3.74 uIU/mL Blood Gas Specimen Type Arterial Arterial Blood pH 7.457 H 7.350-7.450 Arterial Blood Partial Pressure CO2 27 L 32-45 mmHg Arterial Blood Partial Pressure O2 84.5 83.0-108.0 mmHg Arterial Blood HCO3 18.5 L 21.0-28.0 mmol/L Arterial Blood Oxygen Saturation 97.0 94.0-98.0 % Arterial Blood Base Excess -3.7 L -2.0-3.0 mmol/L Blood Gas Temperature 37.0 35.5-37.0 CELSIUS Blood Gas Flow-by 2.00 0.00-15.00 L/min Blood Gas Vent Mode 2LNC ROOM AIR FiO2 28.0 % Blood Gas Specimen Comment LR RN Test 06/08/24 01:03 06/08/24 00:31 Range/Units Urine Color YELLOW YELLOW Urine Appearance CLEAR CLEAR Urine pH 6.5 5.0-8.0 Urine Specific [place] 1.012 1.001-1.031 Urine Protein NEGATIVE NEGATIVE mg/dL Urine Glucose (UA) NEGATIVE NEGATIVE mg/dL Urine Ketones NEGATIVE NEGATIVE mg/dL Urine Occult Blood MODERATE H NEGATIVE Urine Nitrate NEGATIVE NEGATIVE Urine Bilirubin NEGATIVE NEGATIVE mg/dL Urine Urobilinogen 0.2 0.2-1.0 mg/dL Urine Leukocyte Esterase 75 H NEGATIVE John/uL Urine RBC 51-100 H 0-1 /HPF Urine WBC 6-10 H 0-1 /HPF Urine Squamous Epithelial Cells RARE 0-2 /HPF Urine Bacteria FEW None Seen /HPF Band Neutrophils % 1 0-2 % Basophils % (Manual) 2 0-2 % Prothrombin Time 13.0 H 9.6-11.6 SEC Prothromb Time International Ratio 1.25 H 0.85-1.15 Activated Partial Thromboplast Time 30.2 26.3-35.5 SEC Hemoglobin A1c 5.1 4.0-6.0 % Estimated Average Glucose (eAG) 100 70-126 mg/dL Total Bilirubin 1.3 H 0.2-1.0 mg/dL Direct Bilirubin 0.3 0.0-0.3 mg/dL Aspartate Amino Transf (AST/SGOT) 74 H 10-37 U/L Alanine Aminotransferase (ALT/SGPT) 36 12-78 U/L Alkaline Phosphatase 169 H 50-136 U/L Total Protein 7.9 6.0-8.3 g/dL Albumin 2.4 L 3.5-5.0 g/dL Current Medications Medications (Trade) Dose Ordered Sig/Johnny Route PRN Reason Start Time Stop Time Status Last Admin Dose Admin Acetaminophen (TYLenol 325MG TAB) 650 mg Q6H PRN PO FEVER/MILD PAIN LEVEL 1-3 06/08/24 02:00 07/08/24 01:59 06/09/24 09:36 650 MG Acetaminophen (TYLenol 650MG SUPPOSITORY) 650 mg Q6H PRN RC FEVER / MILD PAIN 1-3 IF NPO 06/08/24 02:00 07/08/24 01:59 Albuterol Sulfate (Proventil 0.083% 2.5mg/3ml) 2.5 mg [id number] IH 06/08/24 10:10 07/08/24 10:09 06/09/24 11:02 2.5 MG Budesonide (Pulmicort 0.5 Mg/2ml) 0.5 mg BIDRESP IH 06/08/24 10:10 07/08/24 10:09 06/09/24 06:45 0.5 MG Carvedilol (Coreg 6.25MG) 6.25 mg BID PO 06/08/24 09:00 07/08/24 08:59 06/09/24 09:27 6.25 MG Ceftriaxone Sodium (Rocephin 2gm Inj) 2 gm DAILY13 IVPB 06/08/24 13:00 06/18/24 12:59 06/08/24 13:03 2 GM Docusate Sodium (COLace 100MG CAP) 100 mg BID PRN PO c 06/08/24 02:00 07/08/24 01:59 Doxycycline Hyclate 250 ml @ 125 mls/hr Q12H IV 06/08/24 10:00 06/18/24 09:59 06/09/24 09:36 125 MLS/HR Fluticasone Propionate (FLOnase 50 mcg/ spray 16g bottle) 1 SPRAY BID NS 06/08/24 09:00 07/08/24 08:59 06/09/24 09:27 1 SPRAYS Furosemide (LASix 40MG TAB) 40 mg DAILY PO 06/08/24 09:00 07/08/24 08:59 06/09/24 09:28 40 MG Home Med (Home Medication) (Albuterol Sulfate (Dari... Q4HPRN PRN IH wheezing 06/08/24 09:00 07/08/24 08:59 Home Med (Home Medication) (Elexacaftor/ Tezacaftor/ Ivac... DAILY PO 06/08/24 09:00 07/08/24 08:59 Home Med (Home Medication) (Fluticasone/ Umeclidin/ Vilan... DAILY IH 06/08/24 09:00 07/08/24 08:59 Hydralazine HCl (APRESOLine 20MG INJ) 10 mg Q6H PRN IV SBP GREATER THAN 180 06/08/24 02:00 07/08/24 01:59 Insulin Human Regular (humuLIN R 100 UNIT/ML 3ML) INSULIN SLIDING SCAL... Q6H6 SQ 06/08/24 06:00 07/08/24 05:59 Ipratropium Sidell (AtrovENT UD) 0.5 mg [id number] IH 06/08/24 10:10 07/08/24 10:09 06/09/24 11:02 0.5 MG Lactulose (Constulose 20gm/ 30ml Udcup) 20 gm Q6H PO 06/08/24 07:00 07/08/24 06:59 06/08/24 19:00 20 GM Losartan Potassium (CozAAR 25MG TAB) 25 mg DAILY PO 06/08/24 09:00 07/08/24 08:59 06/09/24 09:27 25 MG Magnesium Sulfate 50 ml @ 0 mls/hr PROTOCOL PRN IV LOW MAG LEVEL 06/08/24 09:00 07/08/24 08:59 06/08/24 19:01 25 MLS/HR Multivitamins Therapeutic (Multivitamin Tablet) 1 tab DAILY PO 06/08/24 09:00 07/08/24 08:59 06/09/24 09:27 1 TAB Ondansetron HCl (zoFRAN 4MG INJ) 4 mg Q6H PRN IVP NAUSEA/VOMITING 06/08/24 02:00 07/08/24 01:59 06/08/24 13:58 4 MG Potassium Chloride 100 ml @ 100 mls/hr AD PRN IV POTASSIUM PROTOCOL 06/08/24 09:00 07/08/24 08:59 Potassium Chloride (K-Dur/Klor-Con 20meq) 20 meq AD PRN PO POTASSIUM PROTOCOL 06/08/24 09:00 07/08/24 08:59 06/09/24 09:28 20 MEQ Potassium Chloride (KCl 10% Elixir 20meq/15ml) 20 meq AD PRN PO POTASSIUM PROTOCOL 06/08/24 09:00 07/08/24 08:59 Spironolactone (Aldactone 25mg) 25 mg DAILY PO 06/08/24 09:00 07/08/24 08:59 06/09/24 09:27 25 MG Temazepam (restORIL 15 MG CAP) 15 mg HS PRN PO INSOMNIA/SLEEP 06/08/24 02:00 07/08/24 01:59 Diagnostics / Radiology: [COPY/PASTE HERE IF NO REPORTS PLEASE DELETE SECTION] Assessment: Hepatic encephalopathy Cirrhosis Plan: Continue with transfer to higher level of care per family wishes Labs appear stable for outpatient referral if patient is denied Continue GI prophylaxis Advance diet as tolerated Avoid NSAIDs Antireflux measures Monitor H&H and transfuse as needed Call with questions, concerns or change in clinical status Patient to follow-up at clinic post discharge Thank you for this consult AMANDEEP [facility]ION [facility] Jun 09, 2024 12:01
--- NOTE | 2024-06-09 12:35 | PN ---
[facility] PROGRESS NOTE Date of Service: Jun 09, 2024 Time of Service: 12:25 SUBJECTIVE: Patient is a 58-year-old female with a past medical history of hypertension, bronchiectasis, cystic fibrosis, and recurrent pneumonia. Patient's chief complaint was confusion/disorientation and unusual behavior seen by her family members patient on admission the patient's ammonia levels were 85. Urinary analysis showed an elevated leukocyte esterase with few bacteria and moderate amount of occult blood. Urine culture is pending. Patient's chest x-ray showed bilateral airspace consolidation concerning for pneumonia. Abdominal ultrasound showed liver cirrhosis without free fluid. Patient was started on Rocephin and doxycycline. The patient is being followed by a doctor in [place], and family would like patient to be transferred to that hospital. GI has been consulted for liver cirrhosis. Pulmonology has been consulted for the multifocal pneumonia. Ammonia level is 32, trending down. The patient was seen this morning at bedside. Patient denies chest pain, shortness of breath, nausea, vomiting, fever, chills. Patient complains of dizziness. At bedside, the patient's blood pressure was 166/61. We will be checking orthostatic vital signs today. We will speak to the greenhouse or nursery transplanter to coordinate the patient's care to be transferred to [place] as per family request. REVIEW OF SYSTEMS Unable to obtain ROS from patient due to patient's medical condition/AMS. PHYSICAL EXAM GENERAL APPEARANCE: The patient is awake, alert, and oriented, in no acute cardiopulmonary distress. NEUROLOGICAL: Oriented to person and place. Not oriented to situation nor d ate. HEENT: Face is symmetric. Pupils are equal and reactive. Extraocular movements are intact. NECK: Supple. No JVD. No thyromegaly. No submental, submandibular, pre-/postau ricular, occipital or supraclavicular lymphadenopathy. CHEST: Normal chest expansion. No Telemetry. LUNGS: Absence of any rales, rhonchi or any wheezing. CARDIOVASCULAR: Regular. S1 and S2 normal. No appreciable rubs, murmurs or gallops. ABDOMEN: Obese. Soft, nontender, and nondistended. There is no rebound, voluntary guarding, or rigidity. : Deferred. No Wolf. EXTREMITIES: Non-edematous and not cyanotic. No clubbing. Good capillary refill. SKIN: No skin breakdown. Vital Signs (last 8hr) Date Time Temp Pulse Resp B/P (MAP) Pulse Ox O2 Delivery O2 Flow Rate FiO2 06/09/24 12:03 97.9 57 16 166/81 98 Room Air 06/09/24 11:04 58 18 06/09/24 09:27 143/59 06/09/24 08:26 97.5 56 16 143/59 95 06/09/24 06:47 61 18 06/09/24 06:47 61 18 N/A Room Air 21 LABS: Laboratory: Test 06/09/24 11:20 06/09/24 04:06 06/08/24 09:20 06/08/24 02:15 Range/Units Whole Blood Glucose 104 70-110 MG/DL White Blood Count 2.3 L 4.8-10.8 K/uL Red Blood Count 3.17 L 4.00-5.50 MIL/uL Hemoglobin 9.9 L 12.0-16.0 g/dL Hematocrit 29.9 L 36-48 % Mean Corpuscular Volume 94.3 79-99 fL Mean Corpuscular Hemoglobin 31.2 27.0-33.0 pg Mean Corpuscular Hemoglobin Concent 33.1 32.0-36.0 g/dL Red Cell Distribution Width 15.6 H 11.0-15.5 % Platelet Count 40 #L 130-400 K/uL Mean Platelet Volume 10.6 H 7.5-10.5 fL Immature Granulocyte % (Auto) 0.0 0-1 % Neutrophils (%) (Auto) 49.3 40.0-77.0 % Lymphocytes (%) (Auto) 33.9 21.0-51.0 % Monocytes (%) (Auto) 9.3 3.0-13.0 % Eosinophils (%) (Auto) 6.2 0.0-8.0 % Basophils (%) (Auto) 1.3 0.0-5.0 % Neutrophils # (Auto) 1.1 L 1.8-7.7 K/uL Lymphocytes # (Auto) 0.8 L 1.0-4.8 K/uL Monocytes # (Auto) 0.2 0.1-1.0 K/uL Eosinophils # (Auto) 0.14 0.00-0.70 K/uL Basophils # (Auto) 0.03 0.00-0.20 K/uL Absolute Immature Granulocyte (auto 0.00 0-1 K/uL Segmented Neutrophils % 47 40-70 % Lymphocytes % (Manual) 30 22-44 % Monocytes % (Manual) 8 2-9 % Eosinophils % (Manual) 9 H 1-6 % Nucleated Red Blood Cells 0.0 0.0-0.19 % Differential Comment MANUAL DIFFERENTIAL Reactive Lymphocytes 6 H 0-0 % White Cell Morphology Comment See comments Platelet Morphology Comment MARKED DECREASE Red Blood Cell Morphology See comments Sodium Level 146 H 136-145 mmol/L Potassium Level 3.2 L 3.5-5.1 mmol/L Chloride Level 114 H 101-111 mmol/L Carbon Dioxide Level 21 21-32 mmol/L Blood Urea Nitrogen 18 7-18 mg/dL Creatinine 0.9 0.5-1.0 mg/dL Glomerular Filtration Rate Calc 74 >90 mL/min Random Glucose 93 70-105 mg/dL Total Calcium 8.2 L 8.5-10.1 mg/dL Phosphorus Level 3.7 2.5-4.9 mg/dL Magnesium Level 2.20 1.80-2.40 mg/dL Ammonia 32 11-32 umol/L Thyroid Stimulating Hormone (TSH) 34.38 H 0.36-3.74 uIU/mL Blood Gas Specimen Type Arterial Arterial Blood pH 7.457 H 7.350-7.450 Arterial Blood Partial Pressure CO2 27 L 32-45 mmHg Arterial Blood Partial Pressure O2 84.5 83.0-108.0 mmHg Arterial Blood HCO3 18.5 L 21.0-28.0 mmol/L Arterial Blood Oxygen Saturation 97.0 94.0-98.0 % Arterial Blood Base Excess -3.7 L -2.0-3.0 mmol/L Blood Gas Temperature 37.0 35.5-37.0 CELSIUS Blood Gas Flow-by 2.00 0.00-15.00 L/min Blood Gas Vent Mode 2LNC ROOM AIR FiO2 28.0 % Blood Gas Specimen Comment LR RN Test 06/08/24 01:03 06/08/24 00:31 Range/Units Urine Color YELLOW YELLOW Urine Appearance CLEAR CLEAR Urine pH 6.5 5.0-8.0 Urine Specific [place] 1.012 1.001-1.031 Urine Protein NEGATIVE NEGATIVE mg/dL Urine Glucose (UA) NEGATIVE NEGATIVE mg/dL Urine Ketones NEGATIVE NEGATIVE mg/dL Urine Occult Blood MODERATE H NEGATIVE Urine Nitrate NEGATIVE NEGATIVE Urine Bilirubin NEGATIVE NEGATIVE mg/dL Urine Urobilinogen 0.2 0.2-1.0 mg/dL Urine Leukocyte Esterase 75 H NEGATIVE John/uL Urine RBC 51-100 H 0-1 /HPF Urine WBC 6-10 H 0-1 /HPF Urine Squamous Epithelial Cells RARE 0-2 /HPF Urine Bacteria FEW None Seen /HPF Band Neutrophils % 1 0-2 % Basophils % (Manual) 2 0-2 % Prothrombin Time 13.0 H 9.6-11.6 SEC Prothromb Time International Ratio 1.25 H 0.85-1.15 Activated Partial Thromboplast Time 30.2 26.3-35.5 SEC Hemoglobin A1c 5.1 4.0-6.0 % Estimated Average Glucose (eAG) 100 70-126 mg/dL Total Bilirubin 1.3 H 0.2-1.0 mg/dL Direct Bilirubin 0.3 0.0-0.3 mg/dL Aspartate Amino Transf (AST/SGOT) 74 H 10-37 U/L Alanine Aminotransferase (ALT/SGPT) 36 12-78 U/L Alkaline Phosphatase 169 H 50-136 U/L Total Protein 7.9 6.0-8.3 g/dL Albumin 2.4 L 3.5-5.0 g/dL Current Medications Medications (Trade) Dose Ordered Sig/Johnny Route PRN Reason Start Time Stop Time Status Last Admin Dose Admin Acetaminophen (TYLenol 325MG TAB) 650 mg Q6H PRN PO FEVER/MILD PAIN LEVEL 1-3 06/08/24 02:00 07/08/24 01:59 06/09/24 09:36 650 MG Acetaminophen (TYLenol 650MG SUPPOSITORY) 650 mg Q6H PRN RC FEVER / MILD PAIN 1-3 IF NPO 06/08/24 02:00 07/08/24 01:59 Albuterol Sulfate (Proventil 0.083% 2.5mg/3ml) 2.5 mg [id number] IH 06/08/24 10:10 07/08/24 10:09 06/09/24 11:02 2.5 MG Budesonide (Pulmicort 0.5 Mg/2ml) 0.5 mg BIDRESP IH 06/08/24 10:10 07/08/24 10:09 06/09/24 06:45 0.5 MG Carvedilol (Coreg 6.25MG) 6.25 mg BID PO 06/08/24 09:00 07/08/24 08:59 06/09/24 09:27 6.25 MG Ceftriaxone Sodium (Rocephin 2gm Inj) 2 gm DAILY13 IVPB 06/08/24 13:00 06/18/24 12:59 06/08/24 13:03 2 GM Docusate Sodium (COLace 100MG CAP) 100 mg BID PRN PO c 06/08/24 02:00 07/08/24 01:59 Doxycycline Hyclate 250 ml @ 125 mls/hr Q12H IV 06/08/24 10:00 06/18/24 09:59 06/09/24 09:36 125 MLS/HR Fluticasone Propionate (FLOnase 50 mcg/ spray 16g bottle) 1 SPRAY BID NS 06/08/24 09:00 07/08/24 08:59 06/09/24 09:27 1 SPRAYS Furosemide (LASix 40MG TAB) 40 mg DAILY PO 06/08/24 09:00 07/08/24 08:59 06/09/24 09:28 40 MG Home Med (Home Medication) (Albuterol Sulfate (Dari... Q4HPRN PRN IH wheezing 06/08/24 09:00 07/08/24 08:59 Home Med (Home Medication) (Elexacaftor/ Tezacaftor/ Ivac... DAILY PO 06/08/24 09:00 07/08/24 08:59 Home Med (Home Medication) (Fluticasone/ Umeclidin/ Vilan... DAILY IH 06/08/24 09:00 07/08/24 08:59 Hydralazine HCl (APRESOLine 20MG INJ) 10 mg Q6H PRN IV SBP GREATER THAN 180 06/08/24 02:00 07/08/24 01:59 Insulin Human Regular (humuLIN R 100 UNIT/ML 3ML) INSULIN SLIDING SCAL... Q6H6 SQ 06/08/24 06:00 07/08/24 05:59 Ipratropium Aurora (AtrovENT UD) 0.5 mg [id number] IH 06/08/24 10:10 07/08/24 10:09 06/09/24 11:02 0.5 MG Lactulose (Constulose 20gm/ 30ml Udcup) 20 gm Q6H PO 06/08/24 07:00 07/08/24 06:59 06/08/24 19:00 20 GM Losartan Potassium (CozAAR 25MG TAB) 25 mg DAILY PO 06/08/24 09:00 07/08/24 08:59 06/09/24 09:27 25 MG Magnesium Sulfate 50 ml @ 0 mls/hr PROTOCOL PRN IV LOW MAG LEVEL 06/08/24 09:00 07/08/24 08:59 06/08/24 19:01 25 MLS/HR Multivitamins Therapeutic (Multivitamin Tablet) 1 tab DAILY PO 06/08/24 09:00 07/08/24 08:59 06/09/24 09:27 1 TAB Ondansetron HCl (zoFRAN 4MG INJ) 4 mg Q6H PRN IVP NAUSEA/VOMITING 06/08/24 02:00 07/08/24 01:59 06/08/24 13:58 4 MG Potassium Chloride 100 ml @ 100 mls/hr AD PRN IV POTASSIUM PROTOCOL 06/08/24 09:00 07/08/24 08:59 Potassium Chloride (K-Dur/Klor-Con 20meq) 20 meq AD PRN PO POTASSIUM PROTOCOL 06/08/24 09:00 07/08/24 08:59 06/09/24 09:28 20 MEQ Potassium Chloride (KCl 10% Elixir 20meq/15ml) 20 meq AD PRN PO POTASSIUM PROTOCOL 06/08/24 09:00 07/08/24 08:59 Spironolactone (Aldactone 25mg) 25 mg DAILY PO 06/08/24 09:00 07/08/24 08:59 06/09/24 09:27 25 MG Temazepam (restORIL 15 MG CAP) 15 mg HS PRN PO INSOMNIA/SLEEP 06/08/24 02:00 07/08/24 01:59 DIAGNOSTICS / RADIOLOGY: [place] [id number] [address] IMAGING REPORT Signed PATIENT: JOSE JUAN LEONARDO MR#: [id number] : 1965 SEX: F AGE: 58 LOCATION: EDHIP ORDER STATUS: ADM IN REPORT#: [id number] SERVICE REASON: cough, cirrhosis of the liver, elevated ammonia level ORDERING PHYSICIAN: GILDA MARINA PROCEDURE: CAP WO - CT CHEST/ABD/PELV W/O CONTRAST CT CHEST/ABD/PELV W/O CONTRAST HISTORY: cough, cirrhosis of the liver, elevated ammonia level TECHNIQUE: CT CHEST/ABD/PELV W/O CONTRAST. Coronal and sagittal reformats were obtained. CT was performed with one or more of the following dose reduction techniques: Automated exposure control, adjustment of the mA and/or kV according to the patient's size, or use of the iterative reconstruction technique. FINDINGS: The noncontrast nature this study limits evaluation of the mediastinal structures. Bilateral patchy groundglass and airspace consolidation suggesting multifocal pneumonia. Chronic interstitial changes with volume loss, bronchiectasis and retraction seen in the bilateral upper lobes. There is cardiomegaly. Cirrhotic morphology of the liver is seen. There is spleen is enlarged measuring 20.2 cm suggesting portal hypertension. There is no pericardial effusion. There is atherosclerotic disease of the aorta with calcified plaques. Pancreas and kidneys are within normal limits. No bowel obstruction is seen. Distended urinary bladder. There is mild constipation. The appendix was not clearly visualized limiting evaluation. Correlate clinically. No free abdominal air is seen. Degenerative changes of the spine are noted. IMPRESSION: 1. Bilateral patchy groundglass and airspace consolidation suggesting multifocal pneumonia. Chronic interstitial changes with volume loss, bronchiectasis and retraction seen in the bilateral upper lobes. There is cardiomegaly. 2. Cirrhotic morphology of the liver is seen. The spleen is enlarged measuring 20.2 cm suggesting portal hypertension. DICTATED BY: IMTIAZ ISAAC MD DATE: 06/08/24907 ELECTRONICALLY SIGNED BY: IMTIAZ ISAAC MD DATE: 06/08/[address] [address] IMAGING REPORT Signed PATIENT: JOSE JUAN LEONARDO MR#: [id number] : 1965 SEX: F AGE: 58 LOCATION: EDHIP ORDER 8 STATUS: ADM IN REPORT#: [id number] SERVICE REASON: Cirrhosis ORDERING PHYSICIAN: GUME FELIZ MD PROCEDURE: ABD WALL - US ABD LIMITED/ABD WALL US ABD LIMITED/ABD WALL HISTORY: Cirrhosis TECHNIQUE: US ABD LIMITED/ABD WALL. FINDINGS / IMPRESSION: Ultrasound evaluation of the abdomen was performed. There is cirrhosis of the liver. No free fluid was identified. DICTATED BY: IMTIAZ ISAAC MD DATE: 06/08/24831 ELECTRONICALLY SIGNED BY: IMTIAZ ISAAC MD DATE: 06/08/[address] [place] [address] IMAGING REPORT Signed PATIENT: JOSE JUAN LEONARDO MR#: [id number] : 1965 SEX: F AGE: 58 LOCATION: EDHIP ORDER STATUS: ADM IN REPORT#: [id number] SERVICE 0038 REASON: liver failure ORDERING PHYSICIAN: GUME FELIZ MD PROCEDURE: CXR1VW - CHEST 1VW INDICATION: liver failure TECHNIQUE: CHEST 1VW COMPARISON: 05/02/2022 FINDINGS AND IMPRESSION: Bilateral airspace consolidation suggesting vascular congestion/edema versus pneumonia. Chronic interstitial changes again seen in both lungs, more pronounced in the left upper lobe. Mild cardiomegaly Mild degenerative changes of the spine. The visualized upper abdomen appears unremarkable. DICTATED BY: IMTIAZ ISAAC MD DATE: 06/08/24829 ELECTRONICALLY SIGNED BY: IMTIAZ ISAAC MD DATE: 06/08/24833 ASSESSMENT: Hyperammonemic encephalopathy, POA Acute complicated cystitis, POA Multifocal pneumonia, POA Chronic interstitial changes with volume loss, bronchiolectasis, per CT 06/08/2024 Retractions in the bilateral upper lobes, per CT 06/08/2024 Cirrhotic morphology of the liver, per CT 06/08/2024 Splenomegaly Portal hypertension, per CT 06/08/2024 Leukopenia, POA Thrombocytopenia, POA Anemia chronic disease, POA Uncontrolled hypertension, POA Hyperglycemia, POA Transaminitis, POA Hypoalbuminemia, POA Elevated PT INR, POA Chronic problem list: "20% of her left lung working", history of bronchiectasis, cirrhosis of the liver, dermatomyositis, cystic fibrosis, heart disease. History of splenomegaly secondary to liver cirrhosis PLAN: Admit to medical floor with telemetry monitoring. Hyperammonemic encephalopathy -Ammonia level 32, trending down. -Patient continues on lactulose. -K: 3.2 down from 3.5. Na: 146 up from 142- these electrolyte changes may be due to Lactulose effect. We will continue to monitor electrolytes, and replace as needed. Multifocal pneumonia -Patient continues on Rocephin and Doxycycline. -Patient continues on Pulmicort, Albuterol and Atrovent as scheduled. -RT to provide IS and education on use. -Robitussin DM as needed for cough. -We will continue to follow pulmonology recommendations. Liver cirrhosis -We will continue to follow GI recommendations -Continue to monitor Ammonia levels. P.r.n. medications for: Pain management, fever, hypertension, nausea, vomiting, constipation. Glucometer checks a.c. and HS with insulin regular sliding scale coverage as needed per protocol. Blood pressure checks every4 hours and as needed. Reconcile home medications once available. Monitor renal and liver function. Monitor electrolytes and treat accordingly. A.m. labs: CBC, CMP, Mag, phos, TSH, A1c. GI and DVT prophylaxis. RE TORRE MD Jun 09, 2024 12:34
--- NOTE | 2024-06-09 13:10 | NUR ---
DR. ER TORRE IN TO SEE PATIENT AND ASKED FOR PULP MILL TEAM LEADER TO BE CALLED AND INITIATE TRANSFER TO [facility]. CALLED AND NOTIFIED YOAV GARCÍAHELPER SHEAR OPERATOR.
--- NOTE | 2024-06-09 15:30 | NUR ---
DCP: home possible hospital in [place] Pt currently lives with her sps Cesar Owen [phone] and dgt Simran Anselmo [phone]. Pt currently works as a provider. Pt denies having any DME and states that she can complete ADLs independently. PCP is at [facility] and uses [email or web address] for any RX needs. Pt states that at [place] she will be going to a hospital in [place] for evaluation for a possible transplant. PT states that if that does happen she will need transportation to [place]. Addendum: 06/09/24 at 1534 by KANG HAIRSTON SS Amended: Links added.
--- NOTE | 2024-06-09 17:11 | PN ---
[facility] PROGRESS NOTE Date Patient Seen: Jun 09, 2024 Time of Visit: 17:10 Supervising Physician: Dr. Oviedo Primary Care Physician: Self referred Outpatient Specialists: [ ] Inpatient Consults: [ ] PROBLEM LIST: Hyperammonemic encephalopathy, POA Multifocal pneumonia, POA Chronic interstitial changes with volume loss, bronchiolectasis, per CT 06/08/2024 Liver cirrhosis without ascites, per CT 06/08/2024 Splenomegaly Portal hypertension, per CT 06/08/2024 Leukopenia, POA Thrombocytopenia, POA Anemia chronic disease, POA Uncontrolled hypertension, POA Hyperglycemia, POA Transaminitis, POA Hypoalbuminemia, POA Elevated PT INR, POA INTERVAL HISTORY: 06/09/2024: At the time of my evaluation, the patient was sitting up in the bed. She is more awake and lucid today. Per the staff nurse, no acute events overnight. On the monitor, vital signs were hemodynamically stable except for elevated blood pressure. Laboratory data today showed no major changes compared to yesterday except for a slight drop in potassium to 3.2 and improved ammonia level. No new imaging for review today. No other complaint. REVIEW OF SYSTEMS: 12 point ROS reviewed with patient. Pertinent positives mentioned above. Otherwise negative. PHYSICAL EXAM: GENERAL: Alert, weak, awake oriented x 3 HEENT: EOMI, Sclera non icteric, moist mucosa NECK: Supple, no JVD, trachea midline LUNGS: Clear breath sounds bilaterally. No wheezes HEART: Regular rate and rhythm. Normal S1 and S2, without murmurs ABD: Abdomen soft, nontender. Bowel sounds present EXT: No clubbing cyanosis or edema NEURO: Alert and oriented to person, follows commands Vital Signs (last 8hr) Date Time Temp Pulse Resp B/P (MAP) Pulse Ox O2 Delivery O2 Flow Rate FiO2 06/09/24 16:38 97.9 61 16 141/63 93 Room Air 06/09/24 14:27 54 16 144/60 98 Room Air 06/09/24 14:23 51 16 153/64 96 Room Air 06/09/24 14:20 54 16 159/60 97 Room Air 06/09/24 12:03 97.9 57 16 166/81 98 Room Air 06/09/24 11:04 58 18 06/09/24 09:27 143/59 LABS: Hematology Labs: Test 06/09/24 04:06 06/08/24 00:31 Range/Units White Blood Count 2.3 L 4.8-10.8 K/uL Red Blood Count 3.17 L 4.00-5.50 MIL/uL Hemoglobin 9.9 L 12.0-16.0 g/dL Hematocrit 29.9 L 36-48 % Mean Corpuscular Volume 94.3 79-99 fL Mean Corpuscular Hemoglobin 31.2 27.0-33.0 pg Mean Corpuscular Hemoglobin Concent 33.1 32.0-36.0 g/dL Red Cell Distribution Width 15.6 H 11.0-15.5 % Platelet Count 40 #L 130-400 K/uL Mean Platelet Volume 10.6 H 7.5-10.5 fL Immature Granulocyte % (Auto) 0.0 0-1 % Neutrophils (%) (Auto) 49.3 40.0-77.0 % Lymphocytes (%) (Auto) 33.9 21.0-51.0 % Monocytes (%) (Auto) 9.3 3.0-13.0 % Eosinophils (%) (Auto) 6.2 0.0-8.0 % Basophils (%) (Auto) 1.3 0.0-5.0 % Neutrophils # (Auto) 1.1 L 1.8-7.7 K/uL Lymphocytes # (Auto) 0.8 L 1.0-4.8 K/uL Monocytes # (Auto) 0.2 0.1-1.0 K/uL Eosinophils # (Auto) 0.14 0.00-0.70 K/uL Basophils # (Auto) 0.03 0.00-0.20 K/uL Absolute Immature Granulocyte (auto 0.00 0-1 K/uL Segmented Neutrophils % 47 40-70 % Lymphocytes % (Manual) 30 22-44 % Monocytes % (Manual) 8 2-9 % Eosinophils % (Manual) 9 H 1-6 % Nucleated Red Blood Cells 0.0 0.0-0.19 % Differential Comment MANUAL DIFFERENTIAL Reactive Lymphocytes 6 H 0-0 % White Cell Morphology Comment See comments Platelet Morphology Comment MARKED DECREASE Red Blood Cell Morphology See comments Band Neutrophils % 1 0-2 % Basophils % (Manual) 2 0-2 % Chemistry Labs: Test 06/09/24 16:54 06/09/24 04:06 06/08/24 09:20 06/08/24 00:31 Range/Units Whole Blood Glucose 130 H 70-110 MG/DL Sodium Level 146 H 136-145 mmol/L Potassium Level 3.2 L 3.5-5.1 mmol/L Chloride Level 114 H 101-111 mmol/L Carbon Dioxide Level 21 21-32 mmol/L Blood Urea Nitrogen 18 7-18 mg/dL Creatinine 0.9 0.5-1.0 mg/dL Glomerular Filtration Rate Calc 74 >90 mL/min Random Glucose 93 70-105 mg/dL Total Calcium 8.2 L 8.5-10.1 mg/dL Phosphorus Level 3.7 2.5-4.9 mg/dL Magnesium Level 2.20 1.80-2.40 mg/dL Ammonia 32 11-32 umol/L Thyroid Stimulating Hormone (TSH) 34.38 H 0.36-3.74 uIU/mL Hemoglobin A1c 5.1 4.0-6.0 % Estimated Average Glucose (eAG) 100 70-126 mg/dL Total Bilirubin 1.3 H 0.2-1.0 mg/dL Direct Bilirubin 0.3 0.0-0.3 mg/dL Aspartate Amino Transf (AST/SGOT) 74 H 10-37 U/L Alanine Aminotransferase (ALT/SGPT) 36 12-78 U/L Alkaline Phosphatase 169 H 50-136 U/L Total Protein 7.9 6.0-8.3 g/dL Albumin 2.4 L 3.5-5.0 g/dL Coagulation Labs: Test 06/08/24 00:31 Range/Units Prothrombin Time 13.0 H 9.6-11.6 SEC Prothromb Time International Ratio 1.25 H 0.85-1.15 Activated Partial Thromboplast Time 30.2 26.3-35.5 SEC DIAGNOSTICS / RADIOLOGY RESULTS: [ ] PLAN The patient was admitted and Pulmonary Services were consulted due to multifocal pneumoniae. Currently, the patient was started on Rocephin and doxycycline combination. We will continue antibiotic therapy for now. We will follow the progress with repeat imaging. Patient has a IS at the bedside and was instructed to use every hour 10 pulls. The patient will continue on bronchodilator therapy with DuoNebs. She is currently not requiring any oxygen supplementation. Because of the hyperammonemia, the patient was started on lactulose and we will follow the ammonia level trend. We will monitor the patient's progress and response to management. We will continue provide general supportive care, GI and DVT prophylaxis. Further orders per attending MD and hospital course. Appreciate the opportunity provided to participate in patient care. 06/09/2024: For now, going to continue current management for the patient. Respiratory rosen she is stable and continues on room air. We will continue to monitor her mental status. The patient is going to remain on antibiotic therapy as ordered and we will follow the culture and sensitivity report. We will repeat surveillance labs in the morning. We will monitor the patient's progress and response to management. We will continue to provide general supportive care, GI and DVT prophylaxis. Further orders per attending MD and hospital course. NEURO: Minimize central acting medications as possible. Maintain fall precautions, adequate lighting during the day PULMONARY: Supplemental 02 as needed. Maintain aspiration precautions at all times CARDIOVASCULAR: Follow hemodynamics. Vital signs per facility protocol GI & NUTRITION: Continue with nutritional support. Continue stool softeners and laxatives as needed. KIDNEYS & ELECTROLYTES: Strict monitoring of intake, output and overall fluid balance. Avoid nephrotoxic medications to the extent possible. Medications to be dosed according to renal function. Monitor electrolytes and replace as needed ENDOCRINE: Maintain blood glucose between 100-180 at all times. Hypoglycemia protocol in place INFECTIOUS DISEASE: Trend temperature, WBC and procalcitonin level Follow cultures, deescalate antibiotics as soon as possible. Panculture if new onset fever ONCOLOGY/HEMATOLOGY/COAGULATION: Monitor for s/s of bleeding Monitor hemoglobin, coagulation studies as needed SKIN: Pressure ulcer prevention per facility protocol Specialty mattress ORTHO/REHAB: Continue PT/OT Prophylaxis: Continue GI and DVT prophylaxis Code Status: Full Resuscitation Disposition: TBD Other: Total patient care time exceeds 35 minutes excluding all procedures. ROSIBEL DUNAWAY HADOOP DEVELOPER Jun 09, 2024 17:10
--- NOTE | 2024-06-09 18:19 | NUR ---
SCOTT FROM [facility] IN [place] ([phone]) MADE CONTACT AND UPDATE GIVEN. STATES SHE WILL FORWARD INFORMATION TO BRAINER AND J[employer] J2EE APPLICATION DEVELOPER. SCOTT WILL CALL TOMORROW AFTERNOON WITH FURTHER UPDATES.
[2024-06-09] MEDS ORDERED: UMEC1DIS IH (19:38)
[2024-06-10] VITALS (13 sets, daily range): BP systolic 124–168; BP diastolic 55–68; PULSE 55–72; RESP 16–20; TEMP 97.8–98.3; O2SAT 95–99
--- NOTE | 2024-06-10 01:06 | NUR ---
Patient has had 3+ bowel movements and wishes to opt out of 0100 scheduled lactulose.
[2024-06-10 04:35] LABS: BASOPHILS # (AUTO) 0.02 K/uL (0.00-0.20); BASOPHILS % (AUTO) 0.8 % (0.0-5.0); EOSINOPHILS # (AUTO) 0.14 K/uL (0.00-0.70); EOSINOPHILS % (AUTO) 5.3 % (0.0-8.0); HEMATOCRIT 28.7 % (36-48); LYMPHOCYTES # (AUTO) 0.9 K/uL (1.0-4.8); LYMPHOCYTES % (AUTO) 32.8 % (21.0-51.0); MEAN CORPUSCULAR HEMOGLOBIN 30.8 pg (27.0-33.0); MEAN CORPUSCULAR HGB CONC 32.8 g/dL (32.0-36.0); MEAN CORPUSCULAR VOLUME 94.1 fL (79-99); MONOCYTES # (AUTO) 0.2 K/uL (0.1-1.0); MONOCYTES % (AUTO) 7.6 % (3.0-13.0); NEUTROPHILS # (AUTO) 1.4 K/uL (1.8-7.7); NEUTROPHILS % (AUTO) 53.5 % (40.0-77.0); PLATELET COUNT (AUTO) 44 K/uL (130-400); RED BLOOD CELL COUNT(AUTO) 3.05 MIL/uL (4.00-5.50); RED CELL DISTRIBUTION WIDTH 15.9 % (11.0-15.5); WHITE BLOOD COUNT (AUTO) 2.6 K/uL (4.8-10.8)
[2024-06-10 04:45] LABS: BILIRUBIN,TOTAL 0.7 mg/dL (0.2-1.0); CREATININE 0.9 mg/dL (0.5-1.0); POTASSIUM 3.8 mmol/L (3.5-5.1); TOTAL PROTEIN, SERUM 6.7 g/dL (6.0-8.3)
[2024-06-10 05:07] LABS: BAND NEUTROPHILS % (MANUAL) 1 % (0-2); EOSINOPHILS % (MANUAL) 4 % (1-6); LYMPHOCYTES % (MANUAL) 46 % (22-44); MONOCYTES % (MANUAL) 6 % (2-9); SEGMENTED NEUTROPHILS % 43 % (40-70); TOTAL CELLS COUNTED 100
[2024-06-10 05:08] LABS: MAN.DIFF COMMENT-IMPRESSION MANUAL DIFFERENTIAL; PLATELET MORPHOLOGY COMMENT MARKED DECREASE
[2024-06-10] MEDS: UMECLIDINIUM BRM IH SCH (09:00)
[2024-06-10] MEDS: VILANTEROL TR IH SCH (09:00)
[2024-06-10] MEDS: NITROFURANTOIN MONOHYD/M-CRYST 100 MG CAPSULE PO SCH (10:34)
[2024-06-10] MEDS: doCUSate SODIUM 100 MG CAP PO PRN (10:34)
--- NOTE | 2024-06-10 12:06 | PN ---
GASTROENTEROLOGY PROGRESS NOTE Date of Visit: Jun 10, 2024 Time of Visit: 12:06 Events / Notes: No acute events overnight. Patient seen at bedside in stable condition. Plan of care discussed. Review of Systems: CONSTITUTIONAL: No malaise or change in sensation of wellbeing. ENMT: No rhinorrhea, otorrhea, sinus pain, ear ache. CARDIOVASCULAR: No angina, palpitations, orthopnea or paroxysmal dyspnea. RESPIRATORY: No SOB. GASTROINTESTINAL: No abdominal pain, nausea, vomiting, diarrhea, hematemesis, melena or change in the patient's habitual bowel movements consistency/number. GENITOURINARY: No dysuria, hematuria or change in bladder continence. MUSCULOSKELETAL: No new muscle pain or decrease in muscular strength. No new joint swelling, redness or tenderness. SKIN: No new rash. Physical Exam: GEN: Awake, alert, oriented in person, time and place, and in no acute distress. HEENT: No sinus tenderness. Tympanic membranes were not examined. No rhinorrhea. Oral pharyngeal mucosa is pink, moist and within normal limits. Neck is supple with no cervical lymphadenopathy, thyromegaly or JVD. CHEST: Inspection, palpation and percussion of the chest were unremarkable. Lung auscultation revealed normal breath sounds bilaterally. CARDIAC: PMI is within normal limits. Heart sounds are regular. Normal S1, S2. No gallop or murmur. ABD: Soft, non-tender and not distended. No peritoneal signs on palpation. No organomegaly. Normal bowel sounds. EXT: No cyanosis or clubbing. No edema. SKIN: Intact. No rashes. JOINTS: No evidence of synovitis or acute arthritis. NEURO: Alert and oriented to name, place and person. Cranial nerve examination is unremarkable. No focal motor deficits. Normal speech. Gait is normal. Strength is normal. Vital Signs (last 8hr) Date Time Temp Pulse Resp B/P (MAP) Pulse Ox O2 Delivery O2 Flow Rate FiO2 06/10/24 11:24 55 18 06/10/24 11:23 55 18 N/A Room Air 06/10/24 10:40 99 Room Air* 0 06/10/24 10:35 139/66 06/10/24 08:26 97.9 59 18 139/66 99 Room Air 06/10/24 07:10 58 18 N/A Room Air 06/10/24 07:09 58 18 Laboratory: [ ] Laboratory: Test 06/10/24 11:17 06/10/24 04:08 06/09/24 04:06 Range/Units Whole Blood Glucose 127 #H 70-110 MG/DL White Blood Count 2.6 L 4.8-10.8 K/uL Red Blood Count 3.05 L 4.00-5.50 MIL/uL Hemoglobin 9.4 L 12.0-16.0 g/dL Hematocrit 28.7 L 36-48 % Mean Corpuscular Volume 94.1 79-99 fL Mean Corpuscular Hemoglobin 30.8 27.0-33.0 pg Mean Corpuscular Hemoglobin Concent 32.8 32.0-36.0 g/dL Red Cell Distribution Width 15.9 H 11.0-15.5 % Platelet Count 44 L 130-400 K/uL Mean Platelet Volume 11.2 H 7.5-10.5 fL Immature Granulocyte % (Auto) 0.0 0-1 % Neutrophils (%) (Auto) 53.5 40.0-77.0 % Lymphocytes (%) (Auto) 32.8 21.0-51.0 % Monocytes (%) (Auto) 7.6 3.0-13.0 % Eosinophils (%) (Auto) 5.3 0.0-8.0 % Basophils (%) (Auto) 0.8 0.0-5.0 % Neutrophils # (Auto) 1.4 L 1.8-7.7 K/uL Lymphocytes # (Auto) 0.9 L 1.0-4.8 K/uL Monocytes # (Auto) 0.2 0.1-1.0 K/uL Eosinophils # (Auto) 0.14 0.00-0.70 K/uL Basophils # (Auto) 0.02 0.00-0.20 K/uL Absolute Immature Granulocyte (auto 0.00 0-1 K/uL Segmented Neutrophils % 43 40-70 % Band Neutrophils % 1 0-2 % Lymphocytes % (Manual) 46 H 22-44 % Monocytes % (Manual) 6 2-9 % Eosinophils % (Manual) 4 1-6 % Nucleated Red Blood Cells 0.0 0.0-0.19 % Differential Comment MANUAL DIFFERENTIAL White Cell Morphology Comment Platelet Morphology Comment MARKED DECREASE Red Blood Cell Morphology See comments Sodium Level 144 136-145 mmol/L Potassium Level 3.8 3.5-5.1 mmol/L Chloride Level 114 H 101-111 mmol/L Carbon Dioxide Level 22 21-32 mmol/L Blood Urea Nitrogen 20 H 7-18 mg/dL Creatinine 0.9 0.5-1.0 mg/dL Glomerular Filtration Rate Calc 74 >90 mL/min Random Glucose 93 70-105 mg/dL Total Calcium 7.8 L 8.5-10.1 mg/dL Total Bilirubin 0.7 0.2-1.0 mg/dL Aspartate Amino Transf (AST/SGOT) 56 H 10-37 U/L Alanine Aminotransferase (ALT/SGPT) 37 12-78 U/L Alkaline Phosphatase 145 H 50-136 U/L C-Reactive Protein, Quantitative 1.20 0.5-3.0 mg/L Total Protein 6.7 6.0-8.3 g/dL Albumin 2.0 L 3.5-5.0 g/dL Procalcitonin < 0.05 L 0.05-0.5 ng/mL Reactive Lymphocytes 6 H 0-0 % Phosphorus Level 3.7 2.5-4.9 mg/dL Magnesium Level 2.20 1.80-2.40 mg/dL Ammonia 32 11-32 umol/L Current Medications Medications (Trade) Dose Ordered Sig/Johnny Route PRN Reason Start Time Stop Time Status Last Admin Dose Admin Acetaminophen (TYLenol 325MG TAB) 650 mg Q6H PRN PO FEVER/MILD PAIN LEVEL 1-3 06/08/24 02:00 07/08/24 01:59 06/09/24 09:36 650 MG Acetaminophen (TYLenol 650MG SUPPOSITORY) 650 mg Q6H PRN RC FEVER / MILD PAIN 1-3 IF NPO 06/08/24 02:00 07/08/24 01:59 Albuterol Sulfate (Proventil 0.083% 2.5mg/3ml) 2.5 mg [id number] IH 06/08/24 10:10 07/08/24 10:09 06/10/24 11:24 2.5 MG Budesonide (Pulmicort 0.5 Mg/2ml) 0.5 mg BIDRESP IH 06/08/24 10:10 07/08/24 10:09 06/10/24 07:07 0.5 MG Carvedilol (Coreg 6.25MG) 6.25 mg BID PO 06/08/24 09:00 07/08/24 08:59 06/10/24 10:35 6.25 MG Ceftriaxone Sodium (Rocephin 2gm Inj) 2 gm DAILY13 IVPB 06/08/24 13:00 06/18/24 12:59 06/09/24 14:04 2 GM Docusate Sodium (COLace 100MG CAP) 100 mg BID PRN PO c 06/08/24 02:00 07/08/24 01:59 06/10/24 10:34 100 MG Doxycycline Hyclate 250 ml @ 125 mls/hr Q12H IV 06/08/24 10:00 06/18/24 09:59 06/10/24 10:44 125 MLS/HR Fluticasone Propionate (FLOnase 50 mcg/ spray 16g bottle) 1 SPRAY BID NS 06/08/24 09:00 07/08/24 08:59 06/10/24 10:36 1 SPRAYS Furosemide (LASix 40MG TAB) 40 mg DAILY PO 06/08/24 09:00 07/08/24 08:59 06/10/24 10:34 40 MG Home Med (Home Medication) (Albuterol Sulfate (Dari... Q4HPRN PRN IH wheezing 06/08/24 09:00 07/08/24 08:59 Home Med (Home Medication) (Elexacaftor/ Tezacaftor/ Ivac... DAILY PO 06/08/24 09:00 07/08/24 08:59 Home Med (Home Medication) (Fluticasone/ Umeclidin/ Vilan... DAILY IH 06/08/24 09:00 07/08/24 08:59 06/10/24 10:35 1 EACH Home Med (Home Medication) (Umeclidinium Brm/ Vilanterol... DAILY IH 06/10/24 09:00 07/10/24 08:59 Hydralazine HCl (APRESOLine 20MG INJ) 10 mg Q6H PRN IV SBP GREATER THAN 180 06/08/24 02:00 07/08/24 01:59 Insulin Human Regular (humuLIN R 100 UNIT/ML 3ML) INSULIN SLIDING SCAL... Q6H6 SQ 06/08/24 06:00 07/08/24 05:59 Ipratropium [place] (AtrovENT UD) 0.5 mg [id number] IH 06/08/24 10:10 07/08/24 10:09 06/10/24 11:24 0.5 MG Lactulose (Constulose 20gm/ 30ml Udcup) 20 gm Q6H PO 06/08/24 07:00 07/08/24 06:59 06/09/24 19:35 20 GM Losartan Potassium (CozAAR 25MG TAB) 25 mg DAILY PO 06/08/24 09:00 07/08/24 08:59 06/10/24 10:35 25 MG Magnesium Sulfate 50 ml @ 0 mls/hr PROTOCOL PRN IV LOW MAG LEVEL 06/08/24 09:00 07/08/24 08:59 06/08/24 19:01 25 MLS/HR Multivitamins Therapeutic (Multivitamin Tablet) 1 tab DAILY PO 06/08/24 09:00 07/08/24 08:59 06/10/24 10:34 1 TAB Nitrofurantoin Macrocrystals (Macrobid) 100 mg BID PO 06/10/24 09:00 06/15/24 08:59 06/10/24 10:34 100 MG Ondansetron HCl (zoFRAN 4MG INJ) 4 mg Q6H PRN IVP NAUSEA/VOMITING 06/08/24 02:00 07/08/24 01:59 06/08/24 13:58 4 MG Potassium Chloride 100 ml @ 100 mls/hr AD PRN IV POTASSIUM PROTOCOL 06/08/24 09:00 07/08/24 08:59 Potassium Chloride (K-Dur/Klor-Con 20meq) 20 meq AD PRN PO POTASSIUM PROTOCOL 06/08/24 09:00 07/08/24 08:59 06/09/24 12:51 20 MEQ Potassium Chloride (KCl 10% Elixir 20meq/15ml) 20 meq AD PRN PO POTASSIUM PROTOCOL 06/08/24 09:00 07/08/24 08:59 Spironolactone (Aldactone 25mg) 25 mg DAILY PO 06/08/24 09:00 07/08/24 08:59 06/10/24 10:35 25 MG Temazepam (restORIL 15 MG CAP) 15 mg HS PRN PO INSOMNIA/SLEEP 06/08/24 02:00 07/08/24 01:59 Diagnostics / Radiology: [COPY/PASTE HERE IF NO REPORTS PLEASE DELETE SECTION] Assessment: Hepatic encephalopathy Cirrhosis Plan: Labs appear stable for outpatient referral, recommend she keeps follow up Continue GI prophylaxis Advance diet as tolerated Avoid NSAIDs Antireflux measures Monitor H&H and transfuse as needed Call with questions, concerns or change in clinical status Patient to follow-up at clinic post discharge Thank you for this consult AMANDEEP MARION STRETCHER LEVELER OPERATOR HELPER Jun 10, 2024 12:06
--- NOTE | 2024-06-10 15:02 | PN ---
[facility] PROGRESS NOTE Date of Service: Jun 10, 2024 Time of Service: 14:58 SUBJECTIVE: Patient is a 58-year-old female with a past medical history of hypertension, bronchiectasis, cystic fibrosis, and recurrent pneumonia. Patient's chief complaint was confusion/disorientation and unusual behavior seen by her family members patient on admission the patient's ammonia levels were 85. Urinary analysis showed an elevated leukocyte esterase with few bacteria and moderate amount of occult blood. Urine culture is pending. Patient's chest x-ray showed bilateral airspace consolidation concerning for pneumonia. Abdominal ultrasound showed liver cirrhosis without free fluid. Patient was started on Rocephin and doxycycline. The patient is being followed by a doctor in [place], and family would like patient to be transferred to that hospital. GI has been consulted for liver cirrhosis. Pulmonology has been consulted for the multifocal pneumonia. Ammonia level is 32, trending down. The patient was seen this morning at bedside. Patient denies chest pain, shortness of breath, nausea, vomiting, fever, chills. Patient complains of dizziness. At bedside, the patient's blood pressure was 166/61. We will be checking orthostatic vital signs today. We will speak to the guest house manager to coordinate the patient's care to be transferred to [place] as per family request. 06/10: Patient is seen and examined this morning at bedside. Patient denies chest pain, shortness of breath, nausea, vomiting, fever, chills. Patient states she feels better today. The patient states urine culture came back positive for Enterococcus Faecalis, and was started on Macrobid. Patients inflammatory markers are normal, CRP 1.2 and procal <0.05. Patients chemistry is unremarkable. Patients ammonia level is 32. The patients states that if the patient is stable, he will take her to see Dr. Anderson in [place] post discharge. We will continue to follow BIS and GI recommendations. REVIEW OF SYSTEMS Unable to obtain ROS from patient due to patient's medical condition/AMS. PHYSICAL EXAM GENERAL APPEARANCE: The patient is awake, alert, and oriented, in no acute cardiopulmonary distress. NEUROLOGICAL: Oriented to person and place. Not oriented to situation nor date. HEENT: Face is symmetric. Pupils are equal and reactive. Extraocular movements are intact. NECK: Supple. No JVD. No thyromegaly. No submental, submandibular, pre- /postauricular, occipital or supraclavicular lymphadenopathy. CHEST: Normal chest expansion. No Telemetry. LUNGS: Absence of any rales, rhonchi or any wheezing. CARDIOVASCULAR: Regular. S1 and S2 normal. No appreciable rubs, murmurs or gallops. ABDOMEN: Obese. Soft, nontender, and nondistended. There is no rebound, voluntary guarding, or rigidity. : Deferred. No Wolf. EXTREMITIES: Non-edematous and not cyanotic. No clubbing. Good capillary refill. SKIN: No skin breakdown. Vital Signs (last 8hr) Date Time Temp Pulse Resp B/P (MAP) Pulse Ox O2 Delivery O2 Flow Rate FiO2 06/10/24 12:18 97.9 57 16 146/66 97 Room Air 06/10/24 11:24 55 18 06/10/24 11:23 55 18 N/A Room Air 21 06/10/24 10:40 99 Room Air* 0 21 06/10/24 10:35 139/66 06/10/24 08:26 97.9 59 18 139/66 99 Room Air 06/10/24 07:10 58 18 N/A Room Air 21 06/10/24 07:09 58 18 LABS: Laboratory: Test 06/10/24 11:17 06/10/24 04:08 06/09/24 04:06 Range/Units Whole Blood Glucose 127 #H 70-110 MG/DL White Blood Count 2.6 L 4.8-10.8 K/uL Red Blood Count 3.05 L 4.00-5.50 MIL/uL Hemoglobin 9.4 L 12.0-16.0 g/dL Hematocrit 28.7 L 36-48 % Mean Corpuscular Volume 94.1 79-99 fL Mean Corpuscular Hemoglobin 30.8 27.0-33.0 pg Mean Corpuscular Hemoglobin Concent 32.8 32.0-36.0 g/dL Red Cell Distribution Width 15.9 H 11.0-15.5 % Platelet Count 44 L 130-400 K/uL Mean Platelet Volume 11.2 H 7.5-10.5 fL Immature Granulocyte % (Auto) 0.0 0-1 % Neutrophils (%) (Auto) 53.5 40.0-77.0 % Lymphocytes (%) (Auto) 32.8 21.0-51.0 % Monocytes (%) (Auto) 7.6 3.0-13.0 % Eosinophils (%) (Auto) 5.3 0.0-8.0 % Basophils (%) (Auto) 0.8 0.0-5.0 % Neutrophils # (Auto) 1.4 L 1.8-7.7 K/uL Lymphocytes # (Auto) 0.9 L 1.0-4.8 K/uL Monocytes # (Auto) 0.2 0.1-1.0 K/uL Eosinophils # (Auto) 0.14 0.00-0.70 K/uL Basophils # (Auto) 0.02 0.00-0.20 K/uL Absolute Immature Granulocyte (auto 0.00 0-1 K/uL Segmented Neutrophils % 43 40-70 % Band Neutrophils % 1 0-2 % Lymphocytes % (Manual) 46 H 22-44 % Monocytes % (Manual) 6 2-9 % Eosinophils % (Manual) 4 1-6 % Nucleated Red Blood Cells 0.0 0.0-0.19 % Differential Comment MANUAL DIFFERENTIAL White Cell Morphology Comment Platelet Morphology Comment MARKED DECREASE Red Blood Cell Morphology See comments Sodium Level 144 136-145 mmol/L Potassium Level 3.8 3.5-5.1 mmol/L Chloride Level 114 H 101-111 mmol/L Carbon Dioxide Level 22 21-32 mmol/L Blood Urea Nitrogen 20 H 7-18 mg/dL Creatinine 0.9 0.5-1.0 mg/dL Glomerular Filtration Rate Calc 74 >90 mL/min Random Glucose 93 70-105 mg/dL Total Calcium 7.8 L 8.5-10.1 mg/dL Total Bilirubin 0.7 0.2-1.0 mg/dL Aspartate Amino Transf (AST/SGOT) 56 H 10-37 U/L Alanine Aminotransferase (ALT/SGPT) 37 12-78 U/L Alkaline Phosphatase 145 H 50-136 U/L C-Reactive Protein, Quantitative 1.20 0.5-3.0 mg/L Total Protein 6.7 6.0-8.3 g/dL Albumin 2.0 L 3.5-5.0 g/dL Procalcitonin < 0.05 L 0.05-0.5 ng/mL Reactive Lymphocytes 6 H 0-0 % Phosphorus Level 3.7 2.5-4.9 mg/dL Magnesium Level 2.20 1.80-2.40 mg/dL Ammonia 32 11-32 umol/L Current Medications Medications (Trade) Dose Ordered Sig/Johnny Route PRN Reason Start Time Stop Time Status Last Admin Dose Admin Acetaminophen (TYLenol 325MG TAB) 650 mg Q6H PRN PO FEVER/MILD PAIN LEVEL 1-3 06/08/24 02:00 07/08/24 01:59 06/09/24 09:36 650 MG Acetaminophen (TYLenol 650MG SUPPOSITORY) 650 mg Q6H PRN RC FEVER / MILD PAIN 1-3 IF NPO 06/08/24 02:00 07/08/24 01:59 Albuterol Sulfate (Proventil 0.083% 2.5mg/3ml) 2.5 mg [id number] IH 06/08/24 10:10 07/08/24 10:09 06/10/24 11:24 2.5 MG Budesonide (Pulmicort 0.5 Mg/2ml) 0.5 mg BIDRESP IH 06/08/24 10:10 07/08/24 10:09 06/10/24 07:07 0.5 MG Carvedilol (Coreg 6.25MG) 6.25 mg BID PO 06/08/24 09:00 07/08/24 08:59 06/10/24 10:35 6.25 MG Ceftriaxone Sodium (Rocephin 2gm Inj) 2 gm DAILY13 IVPB 06/08/24 13:00 06/18/24 12:59 06/10/24 13:38 2 GM Docusate Sodium (COLace 100MG CAP) 100 mg BID PRN PO c 06/08/24 02:00 07/08/24 01:59 06/10/24 10:34 100 MG Doxycycline Hyclate 250 ml @ 125 mls/hr Q12H IV 06/08/24 10:00 06/18/24 09:59 06/10/24 10:44 125 MLS/HR Fluticasone Propionate (FLOnase 50 mcg/ spray 16g bottle) 1 SPRAY BID NS 06/08/24 09:00 07/08/24 08:59 06/10/24 10:36 1 SPRAYS Furosemide (LASix 40MG TAB) 40 mg DAILY PO 06/08/24 09:00 07/08/24 08:59 06/10/24 10:34 40 MG Home Med (Home Medication) (Albuterol Sulfate (Dari... Q4HPRN PRN IH wheezing 06/08/24 09:00 07/08/24 08:59 Home Med (Home Medication) (Elexacaftor/ Tezacaftor/ Ivac... DAILY PO 06/08/24 09:00 07/08/24 08:59 Home Med (Home Medication) (Fluticasone/ Umeclidin/ Vilan... DAILY IH 06/08/24 09:00 07/08/24 08:59 06/10/24 10:35 1 EACH Home Med (Home Medication) (Umeclidinium Brm/ Vilanterol... DAILY IH 06/10/24 09:00 07/10/24 08:59 Hydralazine HCl (APRESOLine 20MG INJ) 10 mg Q6H PRN IV SBP GREATER THAN 180 06/08/24 02:00 07/08/24 01:59 Insulin Human Regular (humuLIN R 100 UNIT/ML 3ML) INSULIN SLIDING SCAL... Q6H6 SQ 06/08/24 06:00 07/08/24 05:59 Ipratropium [place] (AtrovENT UD) 0.5 mg [id number] IH 06/08/24 10:10 07/08/24 10:09 06/10/24 11:24 0.5 MG Lactulose (Constulose 20gm/ 30ml Udcup) 20 gm Q6H PO 06/08/24 07:00 07/08/24 06:59 06/10/24 12:56 20 GM Losartan Potassium (CozAAR 25MG TAB) 25 mg DAILY PO 06/08/24 09:00 07/08/24 08:59 06/10/24 10:35 25 MG Magnesium Sulfate 50 ml @ 0 mls/hr PROTOCOL PRN IV LOW MAG LEVEL 06/08/24 09:00 07/08/24 08:59 06/08/24 19:01 25 MLS/HR Multivitamins Therapeutic (Multivitamin Tablet) 1 tab DAILY PO 06/08/24 09:00 07/08/24 08:59 06/10/24 10:34 1 TAB Nitrofurantoin Macrocrystals (Macrobid) 100 mg BID PO 06/10/24 09:00 06/15/24 08:59 06/10/24 10:34 100 MG Ondansetron HCl (zoFRAN 4MG INJ) 4 mg Q6H PRN IVP NAUSEA/VOMITING 06/08/24 02:00 07/08/24 01:59 06/08/24 13:58 4 MG Potassium Chloride 100 ml @ 100 mls/hr AD PRN IV POTASSIUM PROTOCOL 06/08/24 09:00 07/08/24 08:59 Potassium Chloride (K-Dur/Klor-Con 20meq) 20 meq AD PRN PO POTASSIUM PROTOCOL 06/08/24 09:00 07/08/24 08:59 06/10/24 12:56 20 MEQ Potassium Chloride (KCl 10% Elixir 20meq/15ml) 20 meq AD PRN PO POTASSIUM PROTOCOL 06/08/24 09:00 07/08/24 08:59 Spironolactone (Aldactone 25mg) 25 mg DAILY PO 06/08/24 09:00 07/08/24 08:59 06/10/24 10:35 25 MG Temazepam (restORIL 15 MG CAP) 15 mg HS PRN PO INSOMNIA/SLEEP 06/08/24 02:00 07/08/24 01:59 DIAGNOSTICS / RADIOLOGY: [ ] ASSESSMENT: Hyperammonemic encephalopathy, POA Acute complicated cystitis, POA Multifocal pneumonia, POA Chronic interstitial changes with volume loss, bronchiolectasis, per CT 06/08/2024 Retractions in the bilateral upper lobes, per CT 06/08/2024 Cirrhotic morphology of the liver, per CT 06/08/2024 Splenomegaly Portal hypertension, per CT 06/08/2024 Leukopenia, POA Thrombocytopenia, POA Anemia chronic disease, POA Uncontrolled hypertension, POA Hyperglycemia, POA Transaminitis, POA Hypoalbuminemia, POA Elevated PT INR, POA Chronic problem list: "20% of her left lung working", history of bronchiectasis, cirrhosis of the liver, dermatomyositis, cystic fibrosis, heart disease. History of splenomegaly secondary to liver cirrhosis PLAN: Admit to medical floor with telemetry monitoring. Hyperammonemic encephalopathy -Ammonia level 32, trending down. -We will continue to follow GI recommendations. Multifocal pneumonia -Patient continues on Rocephin and Doxycycline. -Patient continues on Pulmicort, Albuterol and Atrovent as scheduled. -RT to provide IS and education on use. -Robitussin DM as needed for cough. -We will continue to follow pulmonology recommendations. Liver cirrhosis -We will continue to follow GI recommendations -Continue to monitor Ammonia levels. P.r.n. medications for: Pain management, fever, hypertension, nausea, vomiting, constipation. Glucometer checks a.c. and HS with insulin regular sliding scale coverage as needed per protocol. Blood pressure checks every4 hours and as needed. Reconcile home medications once available. Monitor renal and liver function. Monitor electrolytes and treat accordingly. A.m. labs: CBC, CMP, Mag, phos, TSH, A1c. GI and DVT prophylaxis. This plan has been discussed and approved by my attending. RE TORRE MD Jun 10, 2024 15:02
--- NOTE | 2024-06-10 16:38 | PN ---
[facility] PROGRESS NOTE Date Patient Seen: Jun 10, 2024 Time of Visit: 16:38 Supervising Physician: Milind Oviedo MD Primary Care Physician: Self referred Outpatient Specialists: [ ] Inpatient Consults: [ ] PROBLEM LIST: Hyperammonemic encephalopathy, POA, resolved Multifocal pneumonia, POA Acute cystitis + Enterococcus Faecalis on nitrofurantoin Chronic interstitial changes with volume loss, bronchiolectasis, per CT 06/08/2024 Liver cirrhosis without ascites, per CT 06/08/2024 Splenomegaly Portal hypertension, per CT 06/08/2024 Leukopenia, POA Thrombocytopenia, POA Anemia chronic disease, POA Uncontrolled hypertension, POA Hyperglycemia, POA Transaminitis, POA Hypoalbuminemia, POA Elevated PT INR, POA HX of Pulmonary cystic fibrosis w/ home o2 INTERVAL HISTORY: Patient is alert and oriented x3. No major overnight events she is at room air in no apparent distress saturating 95%, respiratory rate of 18. heart rate in the 60s, hemodynamically stable and afebrile. CBC similar to yesterday with white count slightly improvement to 2.6 H&H is 9.4 over 28.7. Platelet count is 44 K slightly increased from yesterday. On chemistry kidneys are doing well creatinine 0.9 with GFR of 74 chloride of 114 BUN of 20 procalcitonin less than 0.05, liver enzymes mildly elevated but trending down albumin of 2.0. REVIEW OF SYSTEMS: General: No malaise or fever. Neurological: No fainting episodes or seizures. HEENT: No nasal congestion or nasal secretion. Respiratory: No cough, shortness of breath, or wheezing Cardiac: No chest pain or palpitations. Gastrointestinal: No vomiting or diarrhea. Genitourinary: No dysuria hematuria. Skin: No rashes or lesions. Hematological: No bruises or bleeding. Musculoskeletal: No joint pains or arthralgias. Psychiatric: No depression or panic attacks. PHYSICAL EXAM: GENERAL: Alert, weak, awake oriented x 3 HEENT: EOMI, Sclera non icteric, moist mucosa NECK: Supple, no JVD, trachea midline LUNGS: Fine crackles to lower bases bilaterally, No wheezes HEART: Regular rate and rhythm. Normal S1 and S2, without murmurs ABD: Abdomen soft, nontender. Bowel sounds present EXT: No clubbing cyanosis or edema NEURO: Alert and oriented to person, follows commands Vital Signs (last 8hr) Date Time Temp Pulse Resp B/P (MAP) Pulse Ox O2 Delivery O2 Flow Rate FiO2 06/10/24 16:19 98.2 58 16 124/55 98 Room Air 06/10/24 12:18 97.9 57 16 146/66 97 Room Air 06/10/24 11:24 55 18 06/10/24 11:23 55 18 N/A Room Air 21 06/10/24 10:40 99 Room Air* 0 21 06/10/24 10:35 139/66 LABS: Hematology Labs: Test 06/10/24 04:08 06/09/24 04:06 Range/Units White Blood Count 2.6 L 4.8-10.8 K/uL Red Blood Count 3.05 L 4.00-5.50 MIL/uL Hemoglobin 9.4 L 12.0-16.0 g/dL Hematocrit 28.7 L 36-48 % Mean Corpuscular Volume 94.1 79-99 fL Mean Corpuscular Hemoglobin 30.8 27.0-33.0 pg Mean Corpuscular Hemoglobin Concent 32.8 32.0-36.0 g/dL Red Cell Distribution Width 15.9 H 11.0-15.5 % Platelet Count 44 L 130-400 K/uL Mean Platelet Volume 11.2 H 7.5-10.5 fL Immature Granulocyte % (Auto) 0.0 0-1 % Neutrophils (%) (Auto) 53.5 40.0-77.0 % Lymphocytes (%) (Auto) 32.8 21.0-51.0 % Monocytes (%) (Auto) 7.6 3.0-13.0 % Eosinophils (%) (Auto) 5.3 0.0-8.0 % Basophils (%) (Auto) 0.8 0.0-5.0 % Neutrophils # (Auto) 1.4 L 1.8-7.7 K/uL Lymphocytes # (Auto) 0.9 L 1.0-4.8 K/uL Monocytes # (Auto) 0.2 0.1-1.0 K/uL Eosinophils # (Auto) 0.14 0.00-0.70 K/uL Basophils # (Auto) 0.02 0.00-0.20 K/uL Absolute Immature Granulocyte (auto 0.00 0-1 K/uL Segmented Neutrophils % 43 40-70 % Band Neutrophils % 1 0-2 % Lymphocytes % (Manual) 46 H 22-44 % Monocytes % (Manual) 6 2-9 % Eosinophils % (Manual) 4 1-6 % Nucleated Red Blood Cells 0.0 0.0-0.19 % Differential Comment MANUAL DIFFERENTIAL White Cell Morphology Comment Platelet Morphology Comment MARKED DECREASE Red Blood Cell Morphology See comments Reactive Lymphocytes 6 H 0-0 % Chemistry Labs: Test 06/10/24 11:17 06/10/24 04:08 06/09/24 04:06 Range/Units Whole Blood Glucose 127 #H 70-110 MG/DL Sodium Level 144 136-145 mmol/L Potassium Level 3.8 3.5-5.1 mmol/L Chloride Level 114 H 101-111 mmol/L Carbon Dioxide Level 22 21-32 mmol/L Blood Urea Nitrogen 20 H 7-18 mg/dL Creatinine 0.9 0.5-1.0 mg/dL Glomerular Filtration Rate Calc 74 >90 mL/min Random Glucose 93 70-105 mg/dL Total Calcium 7.8 L 8.5-10.1 mg/dL Total Bilirubin 0.7 0.2-1.0 mg/dL Aspartate Amino Transf (AST/SGOT) 56 H 10-37 U/L Alanine Aminotransferase (ALT/SGPT) 37 12-78 U/L Alkaline Phosphatase 145 H 50-136 U/L C-Reactive Protein, Quantitative 1.20 0.5-3.0 mg/L Total Protein 6.7 6.0-8.3 g/dL Albumin 2.0 L 3.5-5.0 g/dL Procalcitonin < 0.05 L 0.05-0.5 ng/mL Phosphorus Level 3.7 2.5-4.9 mg/dL Magnesium Level 2.20 1.80-2.40 mg/dL Ammonia 32 11-32 umol/L DIAGNOSTICS / RADIOLOGY RESULTS: [ ] PLAN Patient is in no apparent distress saturating 95% on room air Patient to follow up with packer operator automatic of choice upon discharge No need for a 6 minute walk prior to discharge as patient has home O2 Continue antibiotics Monitor for bleeding Monitor platelet count NEURO: Minimize central acting medications as possible. Maintain fall precautions, adequate lighting during the day PULMONARY: Supplemental 02 as needed. Maintain aspiration precautions at all times CARDIOVASCULAR: Follow hemodynamics. Vital signs per facility protocol GI & NUTRITION: Continue with nutritional support. Continue stool softeners and laxatives as needed. KIDNEYS & ELECTROLYTES: Strict monitoring of intake, output and overall fluid balance. Avoid nephrotoxic medications to the extent possible. Medications to be dosed according to renal function. Monitor electrolytes and replace as needed ENDOCRINE: Maintain blood glucose between 100-180 at all times. Hypoglycemia protocol in place INFECTIOUS DISEASE: Trend temperature, WBC and procalcitonin level Follow cultures, deescalate antibiotics as soon as possible. Panculture if new onset fever ONCOLOGY/HEMATOLOGY/COAGULATION: Monitor for s/s of bleeding Monitor hemoglobin, coagulation studies as needed SKIN: Pressure ulcer prevention per facility protocol Specialty mattress ORTHO/REHAB: Continue PT/OT Prophylaxis: Continue GI and DVT prophylaxis Code Status: Full Resuscitation Disposition: TBD Other: Total patient care time exceeds 35 minutes excluding all procedures. ATTESTATION BY PHYSICIAN I reviewed the documentation, medical decision making, and treatment plan as noted by the mid-level provider above. I agree with the findings and plan of care. Milind Oviedo MD, NELLY J RELAY ENGINEER Jun 10, 2024 16:38
[2024-06-11] VITALS (11 sets, daily range): BP systolic 145–163; BP diastolic 52–66; PULSE 56–74; RESP 16–20; TEMP 97.8–98.7; O2SAT 94–97
[2024-06-11 06:19] LABS: BASOPHILS # (AUTO) 0.03 K/uL (0.00-0.20); BASOPHILS % (AUTO) 1.3 % (0.0-5.0); EOSINOPHILS # (AUTO) 0.18 K/uL (0.00-0.70); EOSINOPHILS % (AUTO) 7.8 % (0.0-8.0); HEMATOCRIT 38.6 % (36-48); LYMPHOCYTES # (AUTO) 0.7 K/uL (1.0-4.8); LYMPHOCYTES % (AUTO) 30.6 % (21.0-51.0); MEAN CORPUSCULAR HEMOGLOBIN 31.6 pg (27.0-33.0); MEAN CORPUSCULAR HGB CONC 31.3 g/dL (32.0-36.0); MEAN CORPUSCULAR VOLUME 100.8 fL (79-99); MONOCYTES # (AUTO) 0.2 K/uL (0.1-1.0); MONOCYTES % (AUTO) 7.3 % (3.0-13.0); NEUTROPHILS # (AUTO) 1.2 K/uL (1.8-7.7); PLATELET COUNT (AUTO) 43 K/uL (130-400); RED BLOOD CELL COUNT(AUTO) 3.83 MIL/uL (4.00-5.50); RED CELL DISTRIBUTION WIDTH 15.9 % (11.0-15.5); WHITE BLOOD COUNT (AUTO) 2.3 K/uL (4.8-10.8)
[2024-06-11 06:29] LABS: CREATININE 0.8 mg/dL (0.5-1.0)
[2024-06-11 07:49] LABS: EOSINOPHILS % (MANUAL) 7 % (1-6); LYMPHOCYTES % (MANUAL) 27 % (22-44); MAN.DIFF COMMENT-IMPRESSION MANUAL DIFFERENTIAL; MONOCYTES % (MANUAL) 2 % (2-9); SEGMENTED NEUTROPHILS % 64 % (40-70); TOTAL CELLS COUNTED 100
[2024-06-11 07:50] LABS: WBC MORPHOLOGY NORMAL
[2024-06-11 07:51] LABS: PLATELET MORPHOLOGY COMMENT MARKED DECREASE
--- NOTE | 2024-06-11 08:55 | PN ---
GASTROENTEROLOGY PROGRESS NOTE Date of Visit: Jun 11, 2024 Time of Visit: 08:55 Events / Notes: No acute events overnight. Patient seen at bedside in stable condition. Plan of care discussed. Review of Systems: CONSTITUTIONAL: No malaise or change in sensation of wellbeing. ENMT: No rhinorrhea, otorrhea, sinus pain, ear ache. CARDIOVASCULAR: No angina, palpitations, orthopnea or paroxysmal dyspnea. RESPIRATORY: No SOB. GASTROINTESTINAL: No abdominal pain, nausea, vomiting, diarrhea, hematemesis, melena or change in the patient's habitual bowel movements consistency/number. GENITOURINARY: No dysuria, hematuria or change in bladder continence. MUSCULOSKELETAL: No new muscle pain or decrease in muscular strength. No new joint swelling, redness or tenderness. SKIN: No new rash. Physical Exam: GEN: Awake, alert, oriented in person, time and place, and in no acute distress. HEENT: No sinus tenderness. Tympanic membranes were not examined. No rhinorrhea. Oral pharyngeal mucosa is pink, moist and within normal limits. Neck is supple with no cervical lymphadenopathy, thyromegaly or JVD. CHEST: Inspection, palpation and percussion of the chest were unremarkable. Lung auscultation revealed normal breath sounds bilaterally. CARDIAC: PMI is within normal limits. Heart sounds are regular. Normal S1, S2. No gallop or murmur. ABD: Soft, non-tender and not distended. No peritoneal signs on palpation. No organomegaly. Normal bowel sounds. EXT: No cyanosis or clubbing. No edema. SKIN: Intact. No rashes. JOINTS: No evidence of synovitis or acute arthritis. NEURO: Alert and oriented to name, place and person. Cranial nerve examination is unremarkable. No focal motor deficits. Normal speech. Gait is normal. Strength is normal. Vital Signs (last 8hr) Date Time Temp Pulse Resp B/P (MAP) Pulse Ox O2 Delivery O2 Flow Rate FiO2 06/11/24 08:05 98.2 56 16 163/59 96 Room Air 06/11/24 07:11 18 N/A Room Air 21 06/11/24 07:11 59 18 06/11/24 04:16 97.9 65 18 150/66 96 Room Air Laboratory: [ ] Laboratory: Test 06/11/24 05:55 06/11/24 05:27 06/10/24 04:08 Range/Units White Blood Count 2.3 L 4.8-10.8 K/uL Red Blood Count 3.83 L 4.00-5.50 MIL/uL Hemoglobin 12.1 # 12.0-16.0 g/dL Hematocrit 38.6 # 36-48 % Mean Corpuscular Volume 100.8 H 79-99 fL Mean Corpuscular Hemoglobin 31.6 27.0-33.0 pg Mean Corpuscular Hemoglobin Concent 31.3 L 32.0-36.0 g/dL Red Cell Distribution Width 15.9 H 11.0-15.5 % Platelet Count 43 L 130-400 K/uL Mean Platelet Volume 11.3 H 7.5-10.5 fL Immature Granulocyte % (Auto) 0.0 0-1 % Neutrophils (%) (Auto) 53.0 40.0-77.0 % Lymphocytes (%) (Auto) 30.6 21.0-51.0 % Monocytes (%) (Auto) 7.3 3.0-13.0 % Eosinophils (%) (Auto) 7.8 0.0-8.0 % Basophils (%) (Auto) 1.3 0.0-5.0 % Neutrophils # (Auto) 1.2 L 1.8-7.7 K/uL Lymphocytes # (Auto) 0.7 L 1.0-4.8 K/uL Monocytes # (Auto) 0.2 0.1-1.0 K/uL Eosinophils # (Auto) 0.18 0.00-0.70 K/uL Basophils # (Auto) 0.03 0.00-0.20 K/uL Absolute Immature Granulocyte (auto 0.00 0-1 K/uL Segmented Neutrophils % 64 40-70 % Lymphocytes % (Manual) 27 22-44 % Monocytes % (Manual) 2 2-9 % Eosinophils % (Manual) 7 H 1-6 % Nucleated Red Blood Cells 0.0 0.0-0.19 % Differential Comment MANUAL DIFFERENTIAL White Cell Morphology Comment NORMAL Platelet Morphology Comment MARKED DECREASE Red Blood Cell Morphology MACROCYTIC 1+ Sodium Level 137 136-145 mmol/L Potassium Level 4.0 3.5-5.1 mmol/L Chloride Level 111 101-111 mmol/L Carbon Dioxide Level 19 L 21-32 mmol/L Blood Urea Nitrogen 20 H 7-18 mg/dL Creatinine 0.8 0.5-1.0 mg/dL Glomerular Filtration Rate Calc 85 >90 mL/min Random Glucose 99 70-105 mg/dL Total Calcium 7.8 L 8.5-10.1 mg/dL Whole Blood Glucose 85 70-110 MG/DL Band Neutrophils % 1 0-2 % Total Bilirubin 0.7 0.2-1.0 mg/dL Aspartate Amino Transf (AST/SGOT) 56 H 10-37 U/L Alanine Aminotransferase (ALT/SGPT) 37 12-78 U/L Alkaline Phosphatase 145 H 50-136 U/L C-Reactive Protein, Quantitative 1.20 0.5-3.0 mg/L Total Protein 6.7 6.0-8.3 g/dL Albumin 2.0 L 3.5-5.0 g/dL Procalcitonin < 0.05 L 0.05-0.5 ng/mL Current Medications Medications (Trade) Dose Ordered Sig/Johnny Route PRN Reason Start Time Stop Time Status Last Admin Dose Admin Acetaminophen (TYLenol 325MG TAB) 650 mg Q6H PRN PO FEVER/MILD PAIN LEVEL 1-3 06/08/24 02:00 07/08/24 01:59 06/09/24 09:36 650 MG Acetaminophen (TYLenol 650MG SUPPOSITORY) 650 mg Q6H PRN RC FEVER / MILD PAIN 1-3 IF NPO 06/08/24 02:00 07/08/24 01:59 Albuterol Sulfate (Proventil 0.083% 2.5mg/3ml) 2.5 mg [id number] IH 06/08/24 10:10 07/08/24 10:09 06/11/24 07:10 2.5 MG Budesonide (Pulmicort 0.5 Mg/2ml) 0.5 mg BIDRESP IH 06/08/24 10:10 07/08/24 10:09 06/11/24 07:10 0.5 MG Carvedilol (Coreg 6.25MG) 6.25 mg BID PO 06/08/24 09:00 07/08/24 08:59 06/10/24 20:55 6.25 MG Ceftriaxone Sodium (Rocephin 2gm Inj) 2 gm DAILY13 IVPB 06/08/24 13:00 06/18/24 12:59 06/10/24 13:38 2 GM Docusate Sodium (COLace 100MG CAP) 100 mg BID PRN PO c 06/08/24 02:00 07/08/24 01:59 06/10/24 10:34 100 MG Doxycycline Hyclate 250 ml @ 125 mls/hr Q12H IV 06/08/24 10:00 06/18/24 09:59 06/10/24 20:55 125 MLS/HR Fluticasone Propionate (FLOnase 50 mcg/ spray 16g bottle) 1 SPRAY BID NS 06/08/24 09:00 07/08/24 08:59 06/10/24 10:36 1 SPRAYS Furosemide (LASix 40MG TAB) 40 mg DAILY PO 06/08/24 09:00 07/08/24 08:59 06/10/24 10:34 40 MG Home Med (Home Medication) (Albuterol Sulfate (Dari... Q4HPRN PRN IH wheezing 06/08/24 09:00 07/08/24 08:59 Home Med (Home Medication) (Elexacaftor/ Tezacaftor/ Ivac... DAILY PO 06/08/24 09:00 07/08/24 08:59 Home Med (Home Medication) (Fluticasone/ Umeclidin/ Vilan... DAILY IH 06/08/24 09:00 07/08/24 08:59 06/10/24 10:35 1 EACH Home Med (Home Medication) (Umeclidinium Brm/ Vilanterol... DAILY IH 06/10/24 09:00 07/10/24 08:59 Hydralazine HCl (APRESOLine 20MG INJ) 10 mg Q6H PRN IV SBP GREATER THAN 180 06/08/24 02:00 07/08/24 01:59 Insulin Human Regular (humuLIN R 100 UNIT/ML 3ML) INSULIN SLIDING SCAL... Q6H6 SQ 06/08/24 06:00 07/08/24 05:59 Ipratropium Tarpley (AtrovENT UD) 0.5 mg [id number] IH 06/08/24 10:10 07/08/24 10:09 06/11/24 07:10 0.5 MG Lactulose (Constulose 20gm/ 30ml Udcup) 20 gm Q6H PO 06/08/24 07:00 07/08/24 06:59 06/11/24 06:20 20 GM Losartan Potassium (CozAAR 25MG TAB) 25 mg DAILY PO 06/08/24 09:00 07/08/24 08:59 06/10/24 10:35 25 MG Magnesium Sulfate 50 ml @ 0 mls/hr PROTOCOL PRN IV LOW MAG LEVEL 06/08/24 09:00 07/08/24 08:59 06/08/24 19:01 25 MLS/HR Multivitamins Therapeutic (Multivitamin Tablet) 1 tab DAILY PO 06/08/24 09:00 07/08/24 08:59 06/10/24 10:34 1 TAB Nitrofurantoin Macrocrystals (Macrobid) 100 mg BID PO 06/10/24 09:00 06/15/24 08:59 06/10/24 20:55 100 MG Ondansetron HCl (zoFRAN 4MG INJ) 4 mg Q6H PRN IVP NAUSEA/VOMITING 06/08/24 02:00 07/08/24 01:59 06/08/24 13:58 4 MG Potassium Chloride 100 ml @ 100 mls/hr AD PRN IV POTASSIUM PROTOCOL 06/08/24 09:00 07/08/24 08:59 Potassium Chloride (K-Dur/Klor-Con 20meq) 20 meq AD PRN PO POTASSIUM PROTOCOL 06/08/24 09:00 07/08/24 08:59 06/10/24 17:30 20 MEQ Potassium Chloride (KCl 10% Elixir 20meq/15ml) 20 meq AD PRN PO POTASSIUM PROTOCOL 06/08/24 09:00 07/08/24 08:59 Spironolactone (Aldactone 25mg) 25 mg DAILY PO 06/08/24 09:00 07/08/24 08:59 06/10/24 10:35 25 MG Temazepam (restORIL 15 MG CAP) 15 mg HS PRN PO INSOMNIA/SLEEP 06/08/24 02:00 07/08/24 01:59 Diagnostics / Radiology: [COPY/PASTE HERE IF NO REPORTS PLEASE DELETE SECTION] Assessment: Hepatic encephalopathy Cirrhosis Plan: Labs appear stable for outpatient referral, recommend she keeps follow up Continue GI prophylaxis Advance diet as tolerated Avoid NSAIDs Antireflux measures Monitor H&H and transfuse as needed Call with questions, concerns or change in clinical status Patient to follow-up at clinic post discharge Thank you for this consult AMANDEEP MARION REACTOR SERVICE OPERATOR Jun 11, 2024 08:55
--- NOTE | 2024-06-11 13:58 | PN ---
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 Hemodynamically stable, afebrile and does not appear to be in distress She remains on 2 L oxygen, occasional cough without congestion. No hemoptysis Negative for fevers Good appetite, denies chest pain or palpitations REVIEW OF SYSTEMS: General: No malaise or fever. Neurological: No fainting episodes or seizures. HEENT: No nasal congestion or nasal secretion. Respiratory: No cough, shortness of breath, or wheezing Cardiac: No chest pain or palpitations. Gastrointestinal: No vomiting or diarrhea. Genitourinary: No dysuria hematuria. Skin: No rashes or lesions. Hematological: No bruises or bleeding. Musculoskeletal: No joint pains or arthralgias. Psychiatric: No depression or panic attacks. PHYSICAL EXAM: GENERAL: Alert, weak, awake oriented x 3 HEENT: EOMI, Sclera non icteric, moist mucosa NECK: Supple, no JVD, trachea midline LUNGS: Decreased breath sounds bilaterally, no wheezing HEART: Regular rate and rhythm. Normal S1 and S2, without murmurs ABD: Abdomen soft, nontender. Bowel sounds present EXT: No clubbing cyanosis or edema NEURO: Alert and oriented to person, follows commands Vital Signs (last 8hr) Date Time Temp Pulse Resp B/P (MAP) Pulse Ox O2 Delivery O2 Flow Rate FiO2 06/11/24 12:37 98.1 61 16 162/58 97 Room Air 06/11/24 11:40 61 18 N/A Room Air 06/11/24 11:39 59 18 06/11/24 10:59 163/59 06/11/24 10:39 70 18 21 74 20 21 06/11/24 08:05 98.2 56 16 163/59 96 Room Air 06/11/24 07:11 18 N/A Room Air 06/11/24 07:11 59 18 LABS: Hematology Labs: Test 06/11/24 05:55 06/10/24 04:08 Range/Units White Blood Count 2.3 L 4.8-10.8 K/uL Red Blood Count 3.83 L 4.00-5.50 MIL/uL Hemoglobin 12.1 # 12.0-16.0 g/dL Hematocrit 38.6 # 36-48 % Mean Corpuscular Volume 100.8 H 79-99 fL Mean Corpuscular Hemoglobin 31.6 27.0-33.0 pg Mean Corpuscular Hemoglobin Concent 31.3 L 32.0-36.0 g/dL Red Cell Distribution Width 15.9 H 11.0-15.5 % Platelet Count 43 L 130-400 K/uL Mean Platelet Volume 11.3 H 7.5-10.5 fL Immature Granulocyte % (Auto) 0.0 0-1 % Neutrophils (%) (Auto) 53.0 40.0-77.0 % Lymphocytes (%) (Auto) 30.6 21.0-51.0 % Monocytes (%) (Auto) 7.3 3.0-13.0 % Eosinophils (%) (Auto) 7.8 0.0-8.0 % Basophils (%) (Auto) 1.3 0.0-5.0 % Neutrophils # (Auto) 1.2 L 1.8-7.7 K/uL Lymphocytes # (Auto) 0.7 L 1.0-4.8 K/uL Monocytes # (Auto) 0.2 0.1-1.0 K/uL Eosinophils # (Auto) 0.18 0.00-0.70 K/uL Basophils # (Auto) 0.03 0.00-0.20 K/uL Absolute Immature Granulocyte (auto 0.00 0-1 K/uL Segmented Neutrophils % 64 40-70 % Lymphocytes % (Manual) 27 22-44 % Monocytes % (Manual) 2 2-9 % Eosinophils % (Manual) 7 H 1-6 % Nucleated Red Blood Cells 0.0 0.0-0.19 % Differential Comment MANUAL DIFFERENTIAL White Cell Morphology Comment NORMAL Platelet Morphology Comment MARKED DECREASE Red Blood Cell Morphology MACROCYTIC 1+ Band Neutrophils % 1 0-2 % Chemistry Labs: Test 06/11/24 11:20 06/11/24 05:55 06/10/24 04:08 Range/Units Whole Blood Glucose 120 H 70-110 MG/DL Sodium Level 137 136-145 mmol/L Potassium Level 4.0 3.5-5.1 mmol/L Chloride Level 111 101-111 mmol/L Carbon Dioxide Level 19 L 21-32 mmol/L Blood Urea Nitrogen 20 H 7-18 mg/dL Creatinine 0.8 0.5-1.0 mg/dL Glomerular Filtration Rate Calc 85 >90 mL/min Random Glucose 99 70-105 mg/dL Total Calcium 7.8 L 8.5-10.1 mg/dL Total Bilirubin 0.7 0.2-1.0 mg/dL Aspartate Amino Transf (AST/SGOT) 56 H 10-37 U/L Alanine Aminotransferase (ALT/SGPT) 37 12-78 U/L Alkaline Phosphatase 145 H 50-136 U/L C-Reactive Protein, Quantitative 1.20 0.5-3.0 mg/L Total Protein 6.7 6.0-8.3 g/dL Albumin 2.0 L 3.5-5.0 g/dL Procalcitonin < 0.05 L 0.05-0.5 ng/mL DIAGNOSTICS / RADIOLOGY RESULTS: All imaging scans reviewed at bedside with nurse PLAN As per patient, she is back to baseline Plan is for the patient to be discharged home today Disposition as per primary care team From the pulmonary standpoint, no contraindications for safe discharge home NEURO: Minimize central acting medications as possible. Maintain fall precautions, adequate lighting during the day PULMONARY: Supplemental 02 as needed. Maintain aspiration precautions at all times CARDIOVASCULAR: Follow hemodynamics. Vital signs per facility protocol GI & NUTRITION: Continue with nutritional support. Continue stool softeners and laxatives as needed. KIDNEYS & ELECTROLYTES: Strict monitoring of intake, output and overall fluid balance. Avoid nephrotoxic medications to the extent possible. Medications to be dosed according to renal function. Monitor electrolytes and replace as needed ENDOCRINE: Maintain blood glucose between 100-180 at all times. Hypoglycemia protocol in place INFECTIOUS DISEASE: Trend temperature, WBC and procalcitonin level Follow cultures, deescalate antibiotics as soon as possible. Panculture if new onset fever ONCOLOGY/HEMATOLOGY/COAGULATION: Monitor for s/s of bleeding Monitor hemoglobin, coagulation studies as needed SKIN: Pressure ulcer prevention per facility protocol Specialty mattress ORTHO/REHAB: Continue PT/OT Prophylaxis: Continue GI and DVT prophylaxis Code Status: Full Resuscitation Disposition: TBD I personally scribed for SYGENNY MD ([email or web address]) on 06/11/24 at 13:58. Electronically submitted by Agusto Thomas ([email or web address]). GENNY LLOYD MD Jun 11, 2024 13:58
--- NOTE | 2024-06-11 14:14 | PN ---
[facility] PROGRESS NOTE Date of Service: Jun 11, 2024 Time of Service: 14:12 SUBJECTIVE: Patient is a 58-year-old female with a past medical history of hypertension, bronchiectasis, cystic fibrosis, and recurrent pneumonia. Patient's chief complaint was confusion/disorientation and unusual behavior seen by her family members patient on admission the patient's ammonia levels were 85. Urinary analysis showed an elevated leukocyte esterase with few bacteria and moderate amount of occult blood. Urine culture is pending. Patient's chest x-ray showed bilateral airspace consolidation concerning for pneumonia. Abdominal ultrasound showed liver cirrhosis without free fluid. Patient was started on Rocephin and doxycycline. The patient is being followed by a doctor in [place], and family would like patient to be transferred to that hospital. GI has been consulted for liver cirrhosis. Pulmonology has been consulted for the multifocal pneumonia. Ammonia level is 32, trending down. The patient was seen this morning at bedside. Patient denies chest pain, shortness of breath, nausea, vomiting, fever, chills. Patient complains of dizziness. At bedside, the patient's blood pressure was 166/61. We will be checking orthostatic vital signs today. We will speak to the household appliance repairer to coordinate the patient's care to be transferred to [place] as per family request. 06/10: Patient is seen and examined this morning at bedside. Patient denies chest pain, shortness of breath, nausea, vomiting, fever, chills. Patient states she feels better today. The patient states urine culture came back positive for Enterococcus Faecalis, and was started on Macrobid. Patients inflammatory markers are normal, CRP 1.2 and procal <0.05. Patients chemistry is unremarkable. Patients ammonia level is 32. The patients states that if the patient is stable, he will take her to see Dr. Anderson in [place] post discharge. We will continue to follow BIS and GI recommendations. 06/11: Patient is seen and examined this morning at bedside. Patient states she is feeling well. Patient denies chest pain, shortness of breath, nausea, vomiting, fever, chills. The patient had a 6 minute walk today. The patient continues on Macrobid, Doxycycline, and Rocephin. The patient is clinically stable. REVIEW OF SYSTEMS Unable to obtain ROS from patient due to patient's medical condition/AMS. PHYSICAL EXAM GENERAL APPEARANCE: The patient is awake, alert, and oriented, in no acute cardiopulmonary distress. NEUROLOGICAL: Oriented to person and place. Not oriented to situation nor date. HEENT: Face is symmetric. Pupils are equal and reactive. Extraocular movements are intact. NECK: Supple. No JVD. No thyromegaly. No submental, submandibular, pre- /postauricular, occipital or supraclavicular lymphadenopathy. CHEST: Normal chest expansion. No Telemetry. LUNGS: Absence of any rales, rhonchi or any wheezing. CARDIOVASCULAR: Regular. S1 and S2 normal. No appreciable rubs, murmurs or gallops. ABDOMEN: Obese. Soft, nontender, and nondistended. There is no rebound, voluntary guarding, or rigidity. : Deferred. No Wolf. EXTREMITIES: Non-edematous and not cyanotic. No clubbing. Good capillary refill. SKIN: No skin breakdown. Vital Signs (last 8hr) Date Time Temp Pulse Resp B/P (MAP) Pulse Ox O2 Delivery O2 Flow Rate FiO2 06/11/24 12:37 98.1 61 16 162/58 97 Room Air 06/11/24 11:40 61 18 N/A Room Air 21 06/11/24 11:39 59 18 06/11/24 10:59 163/59 06/11/24 10:39 70 18 21 74 20 21 06/11/24 08:05 98.2 56 16 163/59 96 Room Air 06/11/24 07:11 18 N/A Room Air 21 06/11/24 07:11 59 18 LABS: Laboratory: Test 06/11/24 11:20 06/11/24 05:55 06/10/24 04:08 Range/Units Whole Blood Glucose 120 H 70-110 MG/DL White Blood Count 2.3 L 4.8-10.8 K/uL Red Blood Count 3.83 L 4.00-5.50 MIL/uL Hemoglobin 12.1 # 12.0-16.0 g/dL Hematocrit 38.6 # 36-48 % Mean Corpuscular Volume 100.8 H 79-99 fL Mean Corpuscular Hemoglobin 31.6 27.0-33.0 pg Mean Corpuscular Hemoglobin Concent 31.3 L 32.0-36.0 g/dL Red Cell Distribution Width 15.9 H 11.0-15.5 % Platelet Count 43 L 130-400 K/uL Mean Platelet Volume 11.3 H 7.5-10.5 fL Immature Granulocyte % (Auto) 0.0 0-1 % Neutrophils (%) (Auto) 53.0 40.0-77.0 % Lymphocytes (%) (Auto) 30.6 21.0-51.0 % Monocytes (%) (Auto) 7.3 3.0-13.0 % Eosinophils (%) (Auto) 7.8 0.0-8.0 % Basophils (%) (Auto) 1.3 0.0-5.0 % Neutrophils # (Auto) 1.2 L 1.8-7.7 K/uL Lymphocytes # (Auto) 0.7 L 1.0-4.8 K/uL Monocytes # (Auto) 0.2 0.1-1.0 K/uL Eosinophils # (Auto) 0.18 0.00-0.70 K/uL Basophils # (Auto) 0.03 0.00-0.20 K/uL Absolute Immature Granulocyte (auto 0.00 0-1 K/uL Segmented Neutrophils % 64 40-70 % Lymphocytes % (Manual) 27 22-44 % Monocytes % (Manual) 2 2-9 % Eosinophils % (Manual) 7 H 1-6 % Nucleated Red Blood Cells 0.0 0.0-0.19 % Differential Comment MANUAL DIFFERENTIAL White Cell Morphology Comment NORMAL Platelet Morphology Comment MARKED DECREASE Red Blood Cell Morphology MACROCYTIC 1+ Sodium Level 137 136-145 mmol/L Potassium Level 4.0 3.5-5.1 mmol/L Chloride Level 111 101-111 mmol/L Carbon Dioxide Level 19 L 21-32 mmol/L Blood Urea Nitrogen 20 H 7-18 mg/dL Creatinine 0.8 0.5-1.0 mg/dL Glomerular Filtration Rate Calc 85 >90 mL/min Random Glucose 99 70-105 mg/dL Total Calcium 7.8 L 8.5-10.1 mg/dL Band Neutrophils % 1 0-2 % Total Bilirubin 0.7 0.2-1.0 mg/dL Aspartate Amino Transf (AST/SGOT) 56 H 10-37 U/L Alanine Aminotransferase (ALT/SGPT) 37 12-78 U/L Alkaline Phosphatase 145 H 50-136 U/L C-Reactive Protein, Quantitative 1.20 0.5-3.0 mg/L Total Protein 6.7 6.0-8.3 g/dL Albumin 2.0 L 3.5-5.0 g/dL Procalcitonin < 0.05 L 0.05-0.5 ng/mL Current Medications Medications (Trade) Dose Ordered Sig/Johnny Route PRN Reason Start Time Stop Time Status Last Admin Dose Admin Acetaminophen (TYLenol 325MG TAB) 650 mg Q6H PRN PO FEVER/MILD PAIN LEVEL 1-3 06/08/24 02:00 07/08/24 01:59 06/09/24 09:36 650 MG Acetaminophen (TYLenol 650MG SUPPOSITORY) 650 mg Q6H PRN RC FEVER / MILD PAIN 1-3 IF NPO 06/08/24 02:00 07/08/24 01:59 Albuterol Sulfate (Proventil 0.083% 2.5mg/3ml) 2.5 mg [id number] IH 06/08/24 10:10 07/08/24 10:09 06/11/24 11:38 2.5 MG Budesonide (Pulmicort 0.5 Mg/2ml) 0.5 mg BIDRESP IH 06/08/24 10:10 07/08/24 10:09 06/11/24 07:10 0.5 MG Carvedilol (Coreg 6.25MG) 6.25 mg BID PO 06/08/24 09:00 07/08/24 08:59 06/11/24 10:59 6.25 MG Ceftriaxone Sodium (Rocephin 2gm Inj) 2 gm DAILY13 IVPB 06/08/24 13:00 06/18/24 12:59 06/10/24 13:38 2 GM Docusate Sodium (COLace 100MG CAP) 100 mg BID PRN PO c 06/08/24 02:00 07/08/24 01:59 06/10/24 10:34 100 MG Doxycycline Hyclate 250 ml @ 125 mls/hr Q12H IV 06/08/24 10:00 06/18/24 09:59 06/11/24 10:58 125 MLS/HR Fluticasone Propionate (FLOnase 50 mcg/ spray 16g bottle) 1 SPRAY BID NS 06/08/24 09:00 07/08/24 08:59 06/10/24 10:36 1 SPRAYS Furosemide (LASix 40MG TAB) 40 mg DAILY PO 06/08/24 09:00 07/08/24 08:59 06/11/24 10:59 40 MG Home Med (Home Medication) (Albuterol Sulfate (Dari... Q4HPRN PRN IH wheezing 06/08/24 09:00 07/08/24 08:59 Home Med (Home Medication) (Elexacaftor/ Tezacaftor/ Ivac... DAILY PO 06/08/24 09:00 07/08/24 08:59 Home Med (Home Medication) (Fluticasone/ Umeclidin/ Vilan... DAILY IH 06/08/24 09:00 07/08/24 08:59 06/10/24 10:35 1 EACH Home Med (Home Medication) (Umeclidinium Brm/ Vilanterol... DAILY IH 06/10/24 09:00 07/10/24 08:59 Hydralazine HCl (APRESOLine 20MG INJ) 10 mg Q6H PRN IV SBP GREATER THAN 180 06/08/24 02:00 07/08/24 01:59 Insulin Human Regular (humuLIN R 100 UNIT/ML 3ML) INSULIN SLIDING SCAL... Q6H6 SQ 06/08/24 06:00 07/08/24 05:59 Ipratropium [place] (AtrovENT UD) 0.5 mg [id number] IH 06/08/24 10:10 07/08/24 10:09 06/11/24 11:38 0.5 MG Lactulose (Constulose 20gm/ 30ml Udcup) 20 gm Q6H PO 06/08/24 07:00 07/08/24 06:59 06/11/24 06:20 20 GM Losartan Potassium (CozAAR 25MG TAB) 25 mg DAILY PO 06/08/24 09:00 07/08/24 08:59 06/11/24 10:59 25 MG Magnesium Sulfate 50 ml @ 0 mls/hr PROTOCOL PRN IV LOW MAG LEVEL 06/08/24 09:00 07/08/24 08:59 06/08/24 19:01 25 MLS/HR Multivitamins Therapeutic (Multivitamin Tablet) 1 tab DAILY PO 06/08/24 09:00 07/08/24 08:59 06/10/24 10:34 1 TAB Nitrofurantoin Macrocrystals (Macrobid) 100 mg BID PO 06/10/24 09:00 06/15/24 08:59 06/11/24 10:58 100 MG Ondansetron HCl (zoFRAN 4MG INJ) 4 mg Q6H PRN IVP NAUSEA/VOMITING 06/08/24 02:00 07/08/24 01:59 06/08/24 13:58 4 MG Potassium Chloride 100 ml @ 100 mls/hr AD PRN IV POTASSIUM PROTOCOL 06/08/24 09:00 07/08/24 08:59 Potassium Chloride (K-Dur/Klor-Con 20meq) 20 meq AD PRN PO POTASSIUM PROTOCOL 06/08/24 09:00 07/08/24 08:59 06/10/24 17:30 20 MEQ Potassium Chloride (KCl 10% Elixir 20meq/15ml) 20 meq AD PRN PO POTASSIUM PROTOCOL 06/08/24 09:00 07/08/24 08:59 Spironolactone (Aldactone 25mg) 25 mg DAILY PO 06/08/24 09:00 07/08/24 08:59 06/11/24 10:58 25 MG Temazepam (restORIL 15 MG CAP) 15 mg HS PRN PO INSOMNIA/SLEEP 06/08/24 02:00 07/08/24 01:59 DIAGNOSTICS / RADIOLOGY: [ ] ASSESSMENT: Hyperammonemic encephalopathy, POA Acute complicated cystitis, POA Multifocal pneumonia, POA Chronic interstitial changes with volume loss, bronchiolectasis, per CT 06/08/2024 Retractions in the bilateral upper lobes, per CT 06/08/2024 Cirrhotic morphology of the liver, per CT 06/08/2024 Splenomegaly Portal hypertension, per CT 06/08/2024 Leukopenia, POA Thrombocytopenia, POA Anemia chronic disease, POA Uncontrolled hypertension, POA Hyperglycemia, POA Transaminitis, POA Hypoalbuminemia, POA Elevated PT INR, POA Chronic problem list: "20% of her left lung working", history of bronchiectasis, cirrhosis of the liver, dermatomyositis, cystic fibrosis, heart disease. History of splenomegaly secondary to liver cirrhosis PLAN: Admit to medical floor with telemetry monitoring. Hyperammonemic encephalopathy -Ammonia level 32, trending down. -We will continue to follow GI recommendations. Multifocal pneumonia -Patient continues on Rocephin and Doxycycline. -Patient continues on Pulmicort, Albuterol and Atrovent as scheduled. -RT to provide IS and education on use. -Robitussin DM as needed for cough. -We will continue to follow pulmonology recommendations. Liver cirrhosis -We will continue to follow GI recommendations -Continue to monitor Ammonia levels. P.r.n. medications for: Pain management, fever, hypertension, nausea, vomiting, constipation. Glucometer checks a.c. and HS with insulin regular sliding scale coverage as needed per protocol. Blood pressure checks every4 hours and as needed. Reconcile home medications once available. Monitor renal and liver function. Monitor electrolytes and treat accordingly. A.m. labs: CBC, CMP, Mag, phos, TSH, A1c. GI and DVT prophylaxis. This plan has been discussed and approved by my attending. RE TORRE MD Jun 11, 2024 14:14
[2024-06-11] MEDS ORDERED: NITR100C4 PO (14:24)
[2024-06-11] MEDS ORDERED: CEFD300C3 PO (14:26)
[2024-06-11] MEDS ORDERED: LACT-441 PO (14:29)
--- NOTE | 2024-06-11 14:30 | DS ---
Discharge Summary Assessment/Plan: ASSESSMENT: Hyperammonemic encephalopathy, POA Acute complicated cystitis, POA Multifocal pneumonia, POA Chronic interstitial changes with volume loss, bronchiolectasis, per CT 06/08/2024 Retractions in the bilateral upper lobes, per CT 06/08/2024 Cirrhotic morphology of the liver, per CT 06/08/2024 Splenomegaly Portal hypertension, per CT 06/08/2024 Leukopenia, POA Thrombocytopenia, POA Anemia chronic disease, POA Uncontrolled hypertension, POA Hyperglycemia, POA Transaminitis, POA Hypoalbuminemia, POA Elevated PT INR, POA Chronic problem list: "20% of her left lung working", history of bronchiectasis, cirrhosis of the liver, dermatomyositis, cystic fibrosis, heart disease. History of splenomegaly secondary to liver cirrhosis PLAN: Admit to medical floor with telemetry monitoring. Hyperammonemic encephalopathy -Ammonia level 32, trending down. -We will continue to follow GI recommendations. Multifocal pneumonia -Patient continues on Rocephin and Doxycycline. -Patient continues on Pulmicort, Albuterol and Atrovent as scheduled. -RT to provide IS and education on use. -Robitussin DM as needed for cough. -We will continue to follow pulmonology recommendations. Liver cirrhosis -We will continue to follow GI recommendations -Continue to monitor Ammonia levels. P.r.n. medications for: Pain management, fever, hypertension, nausea, vomiting, constipation. Glucometer checks a.c. and HS with insulin regular sliding scale coverage as needed per protocol. Blood pressure checks every4 hours and as needed. Reconcile home medications once available. Monitor renal and liver function. Monitor electrolytes and treat accordingly. A.m. labs: CBC, CMP, Mag, phos, TSH, A1c. GI and DVT prophylaxis. This plan has been discussed and approved by my attending. Home Medications: Reported Medications Umeclidinium Brm/Vilanterol Tr (Anoro Ellipta 62.5-25 Mcg INH) 62.5 Mcg-25 Mcg/Actuation Disk.w.dev, 1 PUFF IH DAILY for 30 Days, #1 EACH 0 Refills 06/09/24 Fluticasone Propionate (Fluticasone Propionate) 50 Mcg/Actuation [place].susp, 1 SPRAY NS BID, #16 GM 0 Refills 06/08/24 Potassium Chloride (Potassium Chloride) 20 Meq Tab.er.prt, 1 TAB PO DAILYBKFST for 30 Days, #30 TAB 0 Refills 06/08/24 Losartan Potassium (Losartan Potassium) 25 Mg Tablet, 1 TAB PO DAILY for 30 Days, #30 TAB 0 Refills 06/08/24 Furosemide (Furosemide) 40 Mg Tablet, 1 TAB PO DAILY for 30 Days, #30 TAB 0 Refills 06/08/24 Omeprazole (Omeprazole) 20 Mg Tab.rap.dr, 1 TAB PO DAILY for 30 Days, #30 TAB 0 Refills 06/08/24 Multivitamin (Multi-Vitamin Daily) 1 Each Tablet, 1 TAB PO DAILY for 30 Days, #30 TAB 0 Refills 06/08/24 Elexacaftor/Tezacaftor/Ivacaft (Trikafta 100/50/75 mg-150 mg) 100-50-75 Tablet.seq, 1 EACH PO DAILY, TAB.SEQ 06/08/24 Carvedilol (Carvedilol) 6.25 Mg Tablet, 1 TAB PO BID for 30 Days, #60 TAB 0 Refills 06/08/24 Albuterol Sulfate (Ventolin Hfa) 90 Mcg Hfa.aer.ad, 2 PUFF IH Q4HPRN PRN for wheezing for 30 Days, #18 GM 0 Refills 06/08/24 Spironolactone (Spironolactone) 25 Mg Tablet, 1 TAB PO DAILY for 30 Days, #30 TAB 0 Refills 06/08/24 Discontinued Reported Medications Fluticasone/Umeclidin/Vilanter (Trelegy Ellipta 200-62.5-25) 1 Each Blst.w.dev, 1 EACH IH DAILY 05/01/22 Potassium Chloride (K-Dur/Klor-Con) 20 Meq Ertab, 20 MEQ PO DAILY, TAB.EC 05/01/22 Albuterol Sulfate (Albuterol Sulfate) 0.63 Mg/3 Ml Vial.neb, 0.63 MG IH TID, INH 05/01/22 Losartan Potassium (Losartan Potassium) 50 Mg Tablet, 50 MG PO TOMÁS, TAB 04/30/22 Amlodipine Besylate (Amlodipine Besylate) 2.5 Mg Tablet, 2.5 MG PO DAILY, TAB 04/30/22 Discontinued Scripts Doxycycline Hyclate (Doxycycline Hyclate) 100 Mg Tablet, 100 MG PO BID, #20 TAB 0 Refills Prov:MERCEDES DUTTON 05/02/22 Prednisone (Prednisone) 20 Mg Tablet, 20 MG PO AD for 6 Days, #9 TAB 0 Refills Day 1-3 take 40 mg orally daily in am. Day 4-6 take 20 mg orally daily in am. Prov:MERCEDES DUTTON 05/02/22 RE TORRE MD Jun 11, 2024 14:30
--- NOTE | 2024-06-11 14:46 | DS ---
Discharge Summary Hospital Course Summary: Patient is a 58-year-old female with a past medical history of hypertension, bronchiectasis, cystic fibrosis, and recurrent pneumonia. Patient's chief complaint was confusion/disorientation and unusual behavior seen by her family members. On admission, the patient's ammonia levels were 85. Urinary analysis showed an elevated leukocyte esterase with few bacteria and moderate amount of occult blood. Urine culture was positive for Enterococcus Faecalis. Patient's chest x-ray showed bilateral airspace consolidation concerning for pneumonia. Abdominal ultrasound showed liver cirrhosis without free fluid. The patient was initiated on Rocephin and Doxycycline for pneumonia, and Macrobid for her UTI. GI was consulted for liver cirrhosis. Pulmonology was consulted for the multifocal pneumonia. The patients ammonia level was trending down. The patients inflammatory markers were within normal limits. The patient underwent a 6 minute walk. The patient was deemed stable for discharge. Patient will be following up with her experimental mechanic electrical and commercial hvac technician in [place]. Tamale Maker(s): Pulmonology, Gastroenterology Procedure(s): [address] [address] IMAGING REPORT Signed PATIENT: JOSE JUAN LEONARDO MR#: [id number] : 1965 SEX: F AGE: 58 LOCATION: EDHIP ORDER 0545 STATUS: ADM IN REPORT#: [id number] SERVICE 0535 REASON: cough, cirrhosis of the liver, elevated ammonia level ORDERING PHYSICIAN: GILDA MARINA CUSHION FILLER PROCEDURE: CAP WO - CT CHEST/ABD/PELV W/O CONTRAST CT CHEST/ABD/PELV W/O CONTRAST HISTORY: cough, cirrhosis of the liver, elevated ammonia level TECHNIQUE: CT CHEST/ABD/PELV W/O CONTRAST. Coronal and sagittal reformats were obtained. CT was performed with one or more of the following dose reduction techniques: Automated exposure control, adjustment of the mA and/or kV according to the patient's size, or use of the iterative reconstruction technique. FINDINGS: The noncontrast nature this study limits evaluation of the mediastinal structures. Bilateral patchy groundglass and airspace consolidation suggesting multifocal pneumonia. Chronic interstitial changes with volume loss, bronchiectasis and retraction seen in the bilateral upper lobes. There is cardiomegaly. Cirrhotic morphology of the liver is seen. There is spleen is enlarged measuring 20.2 cm suggesting portal hypertension. There is no pericardial effusion. There is atherosclerotic disease of the aorta with calcified plaques. Pancreas and kidneys are within normal limits. No bowel obstruction is seen. Distended urinary bladder. There is mild constipation. The appendix was not clearly visualized limiting evaluation. Correlate clinically. No free abdominal air is seen. Degenerative changes of the spine are noted. IMPRESSION: 1. Bilateral patchy groundglass and airspace consolidation suggesting multifocal pneumonia. Chronic interstitial changes with volume loss, bronchiectasis and retraction seen in the bilateral upper lobes. There is cardiomegaly. 2. Cirrhotic morphology of the liver is seen. The spleen is enlarged measuring 20.2 cm suggesting portal hypertension. DICTATED BY: IMTIAZ ISAAC MD DATE: 06/08/2408 ELECTRONICALLY SIGNED BY: IMTIAZ ISAAC MD DATE: 06/08/24 [address] [address] [place] [id number] IMAGING REPORT Signed PATIENT: JOSE JUAN LEONARDO MR#: [id number] : 1965 SEX: F AGE: 58 LOCATION: EDHIP ORDER 8 STATUS: ADM IN REPORT#: [id number] SERVICE REASON: Cirrhosis ORDERING PHYSICIAN: GUME FELIZ MD PROCEDURE: ABD WALL - US ABD LIMITED/ABD WALL US ABD LIMITED/ABD WALL HISTORY: Cirrhosis TECHNIQUE: US ABD LIMITED/ABD WALL. FINDINGS / IMPRESSION: Ultrasound evaluation of the abdomen was performed. There is cirrhosis of the liver. No free fluid was identified. DICTATED BY: IMTIAZ ISAAC MD DATE: 06/08/24 0832 ELECTRONICALLY SIGNED BY: IMTIAZ ISAAC MD DATE: 06/08/24 08 [place] [address] [id number] IMAGING REPORT Signed PATIENT: JOSE JUAN LEONARDO MR#: [id number] : 1965 SEX: F AGE: 58 LOCATION: EDHIP ORDER 0043 STATUS: ADM IN REPORT#: [id number] SERVICE 0038 REASON: liver failure ORDERING PHYSICIAN: GUME FELIZ MD PROCEDURE: CXR1VW - CHEST 1VW INDICATION: liver failure TECHNIQUE: CHEST 1VW COMPARISON: 05/02/2022 FINDINGS AND IMPRESSION: Bilateral airspace consolidation suggesting vascular congestion/edema versus pneumonia. Chronic interstitial changes again seen in both lungs, more pronounced in the left upper lobe. Mild cardiomegaly Mild degenerative changes of the spine. The visualized upper abdomen appears unremarkable. DICTATED BY: IMTIAZ ISAAC MD DATE: 06/08/24829 ELECTRONICALLY SIGNED BY: IMTIAZ ISAAC MD DATE: 06/08/24833 RUN DATE: 06/10/24 [facility] [place] [address] RUN TIME: 06 [address] [place] [address] Department of Laboratories CLIA # [id number] Technical Consultant: Darek Ivan DO Specimen Report PATIENT: JOSE JUAN LEONARDO ACCT: [id number] LOC: 2D U: [id number] AGE/SX: 58/F ROOM: 222 RE06/08/[address]: RENE MARIN MD : 1965 BED: 1 DIS: STATUS: ADM IN TLOC: SPEC: [id number] AGUS: 06/08/24 STATUS: DELIO REQ: [id number] RECD: 06/08/24 [facility] DR: GUME FELIZ MD SOURCE: [facility] [place] ENTR: 06/08/[address]: SELF,[facility]AL [facility] ORDERED: AERO ID & SENS Procedure Result Latoya Date-Time AEROBIC ID & SENSITIVITIES Final 06/10/24-608 [facility] COLONY DESCRIPTION: DAY 1: COLONY COUNT: >100,000 CFU/ML GRAM POSITIVE COCCI IN CHAINS IDENTIFICATION AND SENSITIVITY TO FOLLOW ENTEROCOCCUS FAECALIS E FAECALIS M.I.C. RX --------- ---- AMPICILLIN <=2 S VANCOMYCIN 1 S NITROFURANTOIN <=32 S GENTAMICIN Synergy Screen >500 R PENICILLIN 2 S STREPTOMYCIN Synergy Screen <=1000 S ENTEROCOCCUS FAECALIS: POSITIVE COMBO 34 Streptomycin Synergy Screen S Gentamicin Synergy Screen R [facility] Test Performed at: [facility] [address] [place], [place], [place] Medical Power Distributor: Oliver Oswald D.O. END OF REPORT RUN DATE: 06/08/24 [facility] [address] RUN TIME: [id number] [address], [place] [address] Department of Laboratories CLIA # [id number] Technical Consultant: Darek Ivan DO Specimen Report PATIENT: JOSE JUAN LEONARDO ACCT: [id number] [facility]: [id number] AGE/SX: 58/F ROOM: ED RE06/08/[address]: RENE MARIN MD : 1965 BED: 13 DIS: STATUS: ADM IN TLOC: SPEC: [id number] AGUS: 06/08/24 STATUS: COMP REQ: [id number] RECD: 06/08/[address]: GUME FELIZ MD SOURCE: URINE CC ENTR: 06/08/[address]: SELF,REFERRAL SPDC: ORDERED: URINE CULTURE Procedure Result Latoya Date-Time URINE CULTURE Final 06/08/24-1743 REPORT URINE >= 100,000 CFU IDENTIFICATION AND SUSCEPTIBILITIES IN PROCESS SENT TO REFERENCE LAB SEE [id number] FOR CULTURE RESULTS END OF REPORT Assessment/Plan: ASSESSMENT: Hyperammonemic encephalopathy, POA Acute complicated cystitis, POA Multifocal pneumonia, POA Chronic interstitial changes with volume loss, bronchiolectasis, per CT 06/08/2024 Retractions in the bilateral upper lobes, per CT 06/08/2024 Cirrhotic morphology of the liver, per CT 06/08/2024 Splenomegaly Portal hypertension, per CT 06/08/2024 Leukopenia, POA Thrombocytopenia, POA Anemia chronic disease, POA Uncontrolled hypertension, POA Hyperglycemia, POA Transaminitis, POA Hypoalbuminemia, POA Elevated PT INR, POA Chronic problem list: "20% of her left lung working", history of bronchiectasis, cirrhosis of the liver, dermatomyositis, cystic fibrosis, heart disease. History of splenomegaly secondary to liver cirrhosis Discharge Instructions: Follow up appointments: Patient to follow up with Pulmonology, Gastroenterology, and PCP within 1 week upon discharge. Procedures: n/a Imaging: Reports attached to summary. Microbiology: Reports attached to summary. Activity: Ad igor Home medications: continued New medications: Lactulose, Cefdinir, Doxycycline. Teaching: We reinforced the importance of compliance with follow up appointments and medication compliance. Advised patient to follow up with [employer], Gastroenterology, and PCP within 1 week upon discharge. Emergency instructions: The patient was instructed to present to the nearest emergency department or call 911 should their symptoms return or worsen. Home Medications: Reported Medications Umeclidinium Brm/Vilanterol Tr (Anoro Ellipta 62.5-25 Mcg INH) 62.5 Mcg-25 Mcg/Actuation Disk.w.dev, 1 PUFF IH DAILY for 30 Days, #1 EACH 0 Refills 06/09/25 Fluticasone Propionate (Fluticasone Propionate) 50 Mcg/Actuation [place].susp, 1 SPRAY NS BID, #16 GM 0 Refills 25 Potassium Chloride (Potassium Chloride) 20 Meq Tab.er.prt, 1 TAB PO DAILYBKFST for 30 Days, #30 TAB 0 Refills 06/08/25 Losartan Potassium (Losartan Potassium) 25 Mg Tablet, 1 TAB PO DAILY for 30 Days, #30 TAB 0 Refills 06/08/25 Furosemide (Furosemide) 40 Mg Tablet, 1 TAB PO DAILY for 30 Days, #30 TAB 0 Refills 06/08/25 Omeprazole (Omeprazole) 20 Mg Tab.rap.dr, 1 TAB PO DAILY for 30 Days, #30 TAB 0 Refills 06/08/25 Multivitamin (Multi-Vitamin Daily) 1 Each Tablet, 1 TAB PO DAILY for 30 Days, #30 TAB 0 Refills /20/25 Elexacaftor/Tezacaftor/Ivacaft (Trikafta 100/50/75 mg-150 mg) 100-50-75 Tablet.seq, 1 EACH PO DAILY, TAB.SEQ 20/25 Carvedilol (Carvedilol) 6.25 Mg Tablet, 1 TAB PO BID for 30 Days, #60 TAB 0 Refills 20/25 Albuterol Sulfate (Ventolin Hfa) 90 Mcg Hfa.aer.ad, 2 PUFF IH Q4HPRN PRN for wheezing for 30 Days, #18 GM 0 Refills 06/08/25 Spironolactone (Spironolactone) 25 Mg Tablet, 1 TAB PO DAILY for 30 Days, #30 TAB 0 Refills 4/20/25 Discontinued Reported Medications Fluticasone/Umeclidin/Vilanter (Trelegy Ellipta 200-62.5-25) 1 Each Blst.w.dev, 1 EACH IH DAILY 05/01/22 Potassium Chloride (K-Dur/Klor-Con) 20 Meq Ertab, 20 MEQ PO DAILY, TAB.EC 05/01/22 Albuterol Sulfate (Albuterol Sulfate) 0.63 Mg/3 Ml Vial.neb, 0.63 MG IH TID, INH 05/01/22 Losartan Potassium (Losartan Potassium) 50 Mg Tablet, 50 MG PO TOMÁS, TAB 04/30/22 Amlodipine Besylate (Amlodipine Besylate) 2.5 Mg Tablet, 2.5 MG PO DAILY, TAB 04/30/22 Discontinued Scripts Doxycycline Hyclate (Doxycycline Hyclate) 100 Mg Tablet, 100 MG PO BID, #20 TAB 0 Refills Prov:MERCEDES DUTTON O CUSHION FILLER 05/02/22 Prednisone (Prednisone) 20 Mg Tablet, 20 MG PO AD for 6 Days, #9 TAB 0 Refills Day 1-3 take 40 mg orally daily in am. Day 4-6 take 20 mg orally daily in am. Prov:MERCEDES DUTTON O CUSHION FILLER 05/02/22 New Medications: Cefdinir (Cefdinir) 300 Mg Capsule 1 CAP PO BID for 5 Days, #10 CAP 0 Refills Lactulose (Lactulose) 10 Gram/15 Ml Solution 30 ML PO BID for constipation for 30 Days, #500 ML 0 Refills Nitrofurantoin Monohyd/M-Cryst (Macrobid 100 mg Capsule) 100 Mg Capsule 100 MG PO BID, #8 CAP 0 Refills Continued Medications: Albuterol Sulfate (Ventolin Hfa) 90 Mcg Hfa.aer.ad 2 PUFF IH Q4HPRN PRN for wheezing for 30 Days, #18 GM 0 Refills Carvedilol (Carvedilol) 6.25 Mg Tablet 1 TAB PO BID for 30 Days, #60 TAB 0 Refills Elexacaftor/Tezacaftor/Ivacaft (Trikafta 100/50/75 mg-150 mg) 100-50-75 Tablet.seq 1 EACH PO DAILY, TAB.SEQ Fluticasone Propionate (Fluticasone Propionate) 50 Mcg/Actuation [place].susp 1 SPRAY NS BID, #16 GM 0 Refills Furosemide (Furosemide) 40 Mg Tablet 1 TAB PO DAILY for 30 Days, #30 TAB 0 Refills Losartan Potassium (Losartan Potassium) 25 Mg Tablet 1 TAB PO DAILY for 30 Days, #30 TAB 0 Refills Multivitamin (Multi-Vitamin Daily) 1 Each Tablet 1 TAB PO DAILY for 30 Days, #30 TAB 0 Refills Omeprazole (Omeprazole) 20 Mg Tab.rap.dr 1 TAB PO DAILY for 30 Days, #30 TAB 0 Refills Potassium Chloride (Potassium Chloride) 20 Meq Tab.er.prt 1 TAB PO DAILYBKFST for 30 Days, #30 TAB 0 Refills Spironolactone (Spironolactone) 25 Mg Tablet 1 TAB PO DAILY for 30 Days, #30 TAB 0 Refills Umeclidinium Brm/Vilanterol Tr (Anoro Ellipta 62.5-25 Mcg INH) 62.5 Mcg-25 Mcg/Actuation Disk.w.dev 1 PUFF IH DAILY for 30 Days, #1 EACH 0 Refills RE TORRE MD Jun 11, 2024 14:46
--- NOTE | 2024-06-11 16:31 | NUR ---
DISCHARGE D/C INSTRUCTIONS GIVEN TO PT AND VERBALIZED UNDERSTANDING. IV AND TELE PACK REMOVED. PT WAS ESCORTED VIA WHEELCHAIR. PT WAS STABLE.
== END 2024-06-11 16:40 | disposition home or self-care (01) | DRG 441 ==
LOC: EDH 23:43 → EDHIP 06-08 01:46 → 2DH 06-08 18:06
PROVIDERS: ADMIT Internal Medicine; ATTEND Internal Medicine
DX: K76.82 Hepatic encephalopathy (principal); J18.9 Pneumonia, unspecified organism; N30.00 Acute cystitis without hematuria; J47.0 Bronchiectasis with acute lower respiratory infection; K76.6 Portal hypertension; I10 Essential (primary) hypertension; R73.9 Hyperglycemia, unspecified; D63.8 Anemia in other chronic diseases classified elsewhere; B95.2 Enterococcus as the cause of diseases classified elsewhere; D69.6 Thrombocytopenia, unspecified; D72.819 Decreased white blood cell count, unspecified; E88.09 Other disorders of plasma-protein metabolism, not elsewhere classified; K74.69 Other cirrhosis of liver; Z99.81 Dependence on supplemental oxygen; Z79.899 Other long term (current) drug therapy
CPT/HCPCS: 36415; 36600; 71045; 71250; 74176; 76705; 80048; 80053; 80076; 81001; 82140; 82803; 82948; 83036; 83735; 84100; 84145; 84443; 85025; 85610; 85730; 86140; 87086; 87186; 93005; 94640; 94664; 94760; 96374; 99285; G0378; J0696; J2405; J3475; J3490